=== PATIENT | male | born 1970 | race African-American/Black ===

== ENCOUNTER → 2020-11-02 06:51 | Outpatient (CLI) | payer MEDICARE, SELFPAY ==
[2020-11-02 19:28] LABS: SARS-CoV-2 RNA PCR Negative
== END ==
PROVIDERS: PCP Emergency Medicine; Visit Provider Emergency Medicine
DX: Z20.822 Contact with and (suspected) exposure to COVID-19 (principal); R05 Cough; R09.89 Other specified symptoms and signs involving the circulatory and respiratory systems; R11.0 Nausea
CPT/HCPCS: C9803; U0003; U0005

== ENCOUNTER 2021-07-15 12:29 | Outpatient (CLI) | payer MEDICARE, SELFPAY ==
[2021-07-15 13:01] LABS: Alanine Aminotransferase 35 U/L (4-50); Albumin Level 3.8 g/dL (3.5-5.1); Alkaline Phosphatase 74 U/L (38-126); Anion Gap 3 mmol/L (8-16); Aspartate Amino Transferase 37 U/L (17-59); Bilirubin,Total 0.3 mg/dL (0.2-1.3); Blood Urea Nitrogen 15 mg/dL (9-20); Calcium 8.8 mg/dL (8.4-10.2); Carbon Dioxide 28 mmol/L (22-30); Chloride 102 mmol/L (98-107); Cholesterol 184 mg/dL (0-200); Estimated Glomerular Filt Rate > 60; Glucose 99 mg/dL (65-110); HDL Direct 49 mg/dL; Potassium 4.2 mmol/L (3.4-5.0); Sodium 133 mmol/L (137-145); Triglycerides 310 mg/dL (<150)
[2021-07-15 13:11] LABS: LDL Cholesterol Direct 104 mg/dL
== END 2021-07-15 12:30 | disposition home or self-care (01) ==
PROVIDERS: PCP Emergency Medicine; Visit Provider Emergency Medicine
DX: E78.5 Hyperlipidemia, unspecified (principal)
CPT/HCPCS: 36415; 80053; 80061

== ENCOUNTER 2021-11-06 14:57 | Outpatient (CLI) | payer MEDICARE, SELFPAY ==
--- NOTE | ~2021-11-06 | XR_ITS ---
EXAMINATION: XR finger 5th RT min 2V EXAM DATE: 11/06/2021 15:23 INDICATION: Localized Mass Rt Upper Limb @ Pip Area, Pain/Swelling. TECHNIQUE: Right 5th finger frontal, lateral and oblique projections obtained and reviewed. Comparis on is made to prior examination from 09/28/2016. FINDINGS: There are no acute right 5th finger fractures or dislocations identified. There is no subc utaneous gas. There is soft tissue swelling along the proximal phalanx without underlying osseous ero wil. There are no radiopaque foreign bodies. IMPRESSION: Right 5th finger swelling proximally. Reviewed, dictated and finalized at location G.
== END 2021-11-06 14:58 | disposition home or self-care (01) ==
PROVIDERS: PCP Emergency Medicine; Visit Provider Plastic Surgery
DX: R22.31 Localized swelling, mass and lump, right upper limb (principal)
CPT/HCPCS: 73140

== ENCOUNTER 2022-05-25 07:44 | Emergency (ER) | payer OTHER, SELFPAY ==
[2022-05-25 07:50] VITALS: BP 155/98; PULSE 66; RESP 20; TEMP 36.6; O2SAT 100
[2022-05-25] MEDS: IBUPROFEN 600 MG TABLET PO (08:15)
[2022-05-25] MEDS: CYCLOBENZAPRINE HCL 10 MG TABLET PO (08:15)
--- NOTE | 2022-05-25 08:15 | ED.BACK ---
HPI - Back Pain/Injury General Chief Complaint: Back Pain/Injury Stated Complaint: back pain Time Seen by Provider: 05/25/22 07:47 Source: RN notes reviewed History of Present Illness HPI Narrative: Patient presents emergency department from home for low back pain. Patient states symptoms began yesterday states he was at work and picked up a box turned placed on the shelf states that following that he gone to sit down and then when he got back up he had felt a pull in his back is had pain in the lower back since that time pain in his back is worse with bending and movement of the torso he denies any direct trauma or injury to the back denies falling. He states the pain is only in his back he denies any fevers or chills abdominal pain numbness or weakness of extremities bowel or bladder incontinence or any other symptoms Related Data Home Medications Medication Instructions Recorded Confirmed clotrimazole 1 % topical cream See Rx Instructions .Route .COMPLEX 07/26/19 07/15/21 epinastine 0.05 % eye drops See Rx Instructions .Route .COMPLEX 07/26/19 07/15/21 olopatadine 0.2 % eye drops 1 drop ophthalmic (eye) DAILY 07/26/19 07/15/21 ([place]) Allergies Allergy/AdvReac Type Severity Reaction Status Date / Time No Known Allergies Allergy Verified 05/25/22 08:07 Review of Systems Review of Systems: Gen.: Denies fevers or chills ENT: Denies congestion Respiratory: Denies shortness of breath CV: Denies chest pain or palpitations GI: Denies abdominal pain nausea, emesis or diarrhea denie incontinent Musculoskeletal: See HPI Neuro: Denies numbness, tingling, weakness or focal weakness Skin: Denies rash Except as documented, all other systems reviewed and negative [facility] Past Medical History Medical History HTN (hypertension) Family History Family History Mother Diabetes mellitus Social History Social History Smoking status: Current every day smoker Alcohol intake: current Exam Narrative: APPEARANCE: No acute distress, nontoxic, resting in bed Eyes: EOMI HEENT: Normocephalic, atraumatic, CV: Regular rate and rhythm without murmur RESPIRATORY: No respiratory distress. Clear to auscultation bilaterally. Abdomen: Soft and nontender, no rebound or guarding MUSCULOSKELETAl: Moves all extremities, no clubbing cyanosis or edema Back: No midline lumbar tenderness to palpation or step-off, tender to palpation over bilateral paravertebral muscles L3-5 , pain increased with forward flexion NEURO: Awake and alert. Following commands, speech normal, no focal deficits, muscle strength 5 out of 5 bilateral lower extremities, bilateral patellar reflex 2+ SKIN:: Warm, dry. Normal Color no rash or lesions Course Course Emergency Course: Discussed with patient results of workup and diagnosis. Discussed need for follow-up with primary care, proper use of medication, and reasons to return to the emergency department. Patient understands and agrees to current treatment plan Vital Signs Vital signs: Vital Signs Temperature 97.8 F 05/25/22 07:50 Pulse Rate 66 05/25/22 07:50 Respiratory Rate 20 05/25/22 07:50 Blood Pressure 155/98 H 05/25/22 07:50 Pulse Oximetry 100 05/25/22 07:50 Temperature 97.8 F 05/25/22 07:50 Pulse Rate 66 05/25/22 07:50 Respiratory Rate 20 05/25/22 07:50 Blood Pressure 155/98 H 05/25/22 07:50 Pulse Oximetry 100 05/25/22 07:50 MDM - Back Pain/Injury MDM Narrative Medical decision making narrative: Patient?s pain is positional and localized to back without signs of cord compression or cauda equina. Normal nuerologic exams. No fever noted and no significant risk factors for osteomyelitis or spinal epidural abscess. No symptoms or signs to suggest pain is referred from abdominal or source. There a
== END 2022-05-25 08:31 | disposition home or self-care (01) ==
LOC: ANHED 08:23
PROVIDERS: Emergency Provider Emergency Medicine; PCP Emergency Medicine
DX: M54.50 Low back pain, unspecified (principal); I10 Essential (primary) hypertension
CPT/HCPCS: 99283; A9270

== ENCOUNTER 2023-10-28 09:43 | Outpatient (CLI) | payer OTHER, SELFPAY ==
[2023-10-28 10:10] LABS: Alanine Aminotransferase 54 U/L (6-50); Albumin Level 3.9 g/dL (3.5-5.1); Alkaline Phosphatase 50 U/L (38-126); Anion Gap 4 mmol/L (8-16); Aspartate Amino Transferase 45 U/L (17-59); Bilirubin,Total 0.6 mg/dL (0.2-1.3); Blood Urea Nitrogen 12 mg/dL (9-20); Calcium 8.7 mg/dL (8.4-10.2); Carbon Dioxide 28 mmol/L (22-30); Chloride 107 mmol/L (98-107); Cholesterol 179 mg/dL (0-200); Estimated Glomerular Filt Rate > 60; Glucose 109 mg/dL (65-110); HDL Direct 46 mg/dL; Sodium 139 mmol/L (137-145); Triglycerides 178 mg/dL (<150)
[2023-10-28 10:22] LABS: LDL Cholesterol Direct 97 mg/dL
[2023-10-28 10:41] LABS: Prostate Specific Antigen 0.5 ng/mL (< OR = 4.0)
[2023-10-28 10:48] LABS: Vitamin D 25 Hydroxy 22.8 ng/mL
== END 2023-10-28 09:44 | disposition home or self-care (01) ==
LOC: ANHLAB 09:46
PROVIDERS: PCP Emergency Medicine; Visit Provider Emergency Medicine
DX: E55.9 Vitamin D deficiency, unspecified (principal); I10 Essential (primary) hypertension; K21.9 Gastro-esophageal reflux disease without esophagitis; Z12.5 Encounter for screening for malignant neoplasm of prostate; Z13.220 Encounter for screening for lipoid disorders
CPT/HCPCS: 36415; 80053; 80061; 82306; 84153; 84443; G0103

== ENCOUNTER 2024-08-25 00:36 | Day surgery (SDC) | payer OTHER, SELFPAY ==
--- NOTE | 2024-08-23 10:41 | PC.NURSE ---
Multiple attempts have been made to reach pt regarding his procedure scheduled on 08/25/[address] Mijares with no success. Pt has called the surgery dept. PAT # and was informed to call my number but I have not received any calls from this patient. We have attempted to contact his emergency contact and no voicemail is setup to leave a message. We have called Dr. Diaz office regarding Patient and they have also reached out to patient and have not come into contact with him either. I did leave a message on voicemail once again we are trying to reach him regarding this appt. and that if I do not hear from him today we will need to cancel and reschedule him- this was also sent in an email at the address listed.
[2024-08-25] VITALS (11 sets, daily range): BP systolic 161–203; BP diastolic 108–133; PULSE 66–76; RESP 18–24; TEMP 36.3; O2SAT 100; BMI 26.2
--- NOTE | 2024-08-25 09:18 | P.PNAN_ITS ---
Anes - Initial Pre Proc Eval Procedure: Operation Date: 08/25/24 10:30 Proposed Procedures p Colonoscopy - Pepe Mijares MD Date/Time: 08/25/24 09:18 Surgeon: Pepe Mijares MD Pre Op Diagnosis: fecal abnormalities Patient Data Age: 54 Gender: M Height: 1.78 m Weight: 82.7 kg Last Vital Signs Temp 36.3 C L 08/25/24 08:46 Pulse 66 08/25/24 08:46 Resp 20 08/25/24 08:46 BP 164/108 H 08/25/24 08:46 Pulse Ox 100 08/25/24 08:46 O2 Del Method Room Air 08/25/24 08:46 Allergies Allergy/AdvReac Type Severity Reaction Status Date / Time No Known Allergies Allergy Verified 08/25/24 09:04 Home Medications ?Medication ?Instructions ?Recorded ?Confirmed ?Type epinastine 0.05 % eye drops See Rx Instructions .Route .COMPLEX 07/26/19 08/25/24 History olopatadine 0.2 % eye drops 1 drop ophthalmic (eye) DAILY 07/26/19 08/25/24 History (Pataday) hydrochlorothiazide 25 mg tablet 25 mg PO DAILY #90 tabs 11/04/23 08/25/24 Rx metoprolol succinate 50 mg 50 mg PO DAILY 11/10/23 08/25/24 History tablet,extended release 24 hr pantoprazole 40 mg tablet,delayed 40 mg PO DAILY 11/10/23 08/25/24 History release fluticasone propionate 50 1 spray intranasal BID #48 grams 05/04/24 08/25/24 Rx mcg/actuation nasal spray,suspension (Flonase Allergy Relief) losartan 100 mg tablet See Rx Instructions .Route 06/13/24 08/25/24 Rx .COMPLEX #90 tabs ondansetron HCl 4 mg tablet See Rx Instructions .Route 06/13/24 08/25/24 Rx .COMPLEX #30 tabs Patient hx anesthesia problems: none Family hx anesthesia problems: none Results Review: All pre-operative results and documents have been reviewed as part of the pre- operative evaluation. [facility] Past Medical History Medical History Sinusitis Screening PSA (prostate specific antigen) Nausea Viral warts Seasonal allergic rhinitis Contact dermatitis Fatigue Vitamin D deficiency Umbilical hernia without obstruction and without gangrene HTN (hypertension), benign GERD without esophagitis Generalized abdominal pain Gastroenteritis ETOH abuse Athlete's foot on right Acute non-recurrent maxillary sinusitis Cervical strain Back strain Drainage from wound Cyst of skin Nausea Runny nose Cough HTN (hypertension) Knee pain, bilateral Bronchitis Family History Family History Mother Diabetes mellitus Social History Social History Smoking packs per day: 1 Smoking cigarettes per day: 20.0 Years smoked: 40 Smoking pack-years: 40.00 Smoking status: Current every day smoker Tobacco type: cigarettes Alcohol intake: current Drinks per week: 3 Alcohol use details: Socially Substance use: current Substance use type: marijuana Last use: week ago Do You Feel Safe in your Home?: Yes Lack of Transportation: No Lack of Food: Sometimes True Current Housing: I Have Housing Concerned About Future Housing: No Difficulty Paying Gas/Electric Bills: No Difficulty Paying for Meds: No Currently Unemployed: YES Education: High School Diploma/GED Difficulty w/ Childcare or Family Care: No Living arrangements: alone Spiritual care concerns: No Anes - Eval Final PreProcedure Day of Procedure 08/25/24 09:18 Patient weight: overweight Heart: regular rate and rhythm Lungs: clear to auscultation Airway: Mallampati scale class II Neurological: alert and oriented Last oral intake: >/= 8 hours ASA classification: III Emergent: no Anesthetic plan: proceed Anesthesia type and monitoring: general GIVS and standard monitoring Results Review: All pre-operative results and documents have been reviewed as part of the pre- operative evaluation. Informed Consent: The patient's anesthetic plan and its attendant risks and benefits were discussed with the patient/family/POA. Questions were solicited and answers provided to the satisfaction of the patient/family/POA.
[2024-08-25] MEDS: LACTATED RINGERS 1,000 ML 150 ML IV CONT (09:27)
--- NOTE | 2024-08-25 10:10 | PM.IMHP ---
H&P: HPI History of Present Illness Date/Time: 08/25/24 10:10 Chief Complaint: Positive Cologuard test Narrative: This is the patient's first colonoscopy. he was found to have positive Cologuard test on routine examination. There are no GI symptoms and there is no family history of colorectal cancer. Review of Systems Review of Systems: All systems reviewed & are unremarkable except as noted in HPI and below PMFSH Past Medical History Medical History Sinusitis Screening PSA (prostate specific antigen) Nausea Viral warts Seasonal allergic rhinitis Contact dermatitis Fatigue Vitamin D deficiency Umbilical hernia without obstruction and without gangrene HTN (hypertension), benign GERD without esophagitis Generalized abdominal pain Gastroenteritis ETOH abuse Athlete's foot on right Acute non-recurrent maxillary sinusitis Cervical strain Back strain Drainage from wound Cyst of skin Nausea Runny nose Cough HTN (hypertension) Knee pain, bilateral Bronchitis Family History Family History Mother Diabetes mellitus Social History Social History Smoking packs per day: 1 Smoking cigarettes per day: 20.0 Years smoked: 40 Smoking pack-years: 40.00 Smoking status: Current every day smoker Tobacco type: cigarettes Alcohol intake: current Drinks per week: 3 Alcohol use details: Socially Substance use: current Substance use type: marijuana Last use: week ago Do You Feel Safe in your Home?: Yes Lack of Transportation: No Lack of Food: Sometimes True Current Housing: I Have Housing Concerned About Future Housing: No Difficulty Paying Gas/Electric Bills: No Difficulty Paying for Meds: No Currently Unemployed: YES Education: High School Diploma/GED Difficulty w/ Childcare or Family Care: No Living arrangements: alone Spiritual care concerns: No Meds Home Medications and Allergies Home Medications ?Medication ?Instructions ?Recorded ?Confirmed ?Type epinastine 0.05 % eye drops See Rx Instructions .Route .COMPLEX 07/26/19 08/25/24 History olopatadine 0.2 % eye drops 1 drop ophthalmic (eye) DAILY 07/26/19 08/25/24 History (Pataday) hydrochlorothiazide 25 mg tablet 25 mg PO DAILY #90 tabs 11/04/23 08/25/24 Rx metoprolol succinate 50 mg 50 mg PO DAILY 11/10/23 08/25/24 History tablet,extended release 24 hr pantoprazole 40 mg tablet,delayed 40 mg PO DAILY 11/10/23 08/25/24 History release fluticasone propionate 50 1 spray intranasal BID #48 grams 05/04/24 08/25/24 Rx mcg/actuation nasal spray,suspension (Flonase Allergy Relief) losartan 100 mg tablet See Rx Instructions .Route 06/13/24 08/25/24 Rx .COMPLEX #90 tabs ondansetron HCl 4 mg tablet See Rx Instructions .Route 06/13/24 08/25/24 Rx .COMPLEX #30 tabs Allergies Allergy/AdvReac Type Severity Reaction Status Date / Time No Known Allergies Allergy Verified 08/25/24 09:04 Vital Signs Vital Signs - 24 hr 08/25/24 08:46 Temperature 97.4 F L Pulse Rate 66 Respiratory Rate 20 Blood Pressure 164/108 H Pulse Oximetry 100 Oxygen Delivery Room Air Exam Const: General: cooperative and healthy appearing Resp: Effort & Inspection: normal respiratory effort and able to speak in complete sentences Auscultation: clear to auscultation bilaterally Cardio: Rate: regular rate Rhythm: regular rhythm GI: Inspection: normal to inspection GI Palp: No No hepatosplenomegaly present Auscultation: normal bowel sounds Rectal Exam: deferred Skin: General skin exam: normal color Psych: Appearance: grossly normal Mental Status: mental status grossly normal Assessment and Plan Assessment and plan (1) Colon cancer screening: Code(s): Z12.11 - Encounter for screening for malignant neoplasm of colon Status: Acute Assessment and Plan: The patient is deemed a good candidate for the procedure. Consent signed. Will proceed.
[2024-08-25] MEDS: LABETALOL HCL INJ 100 MG/20 ML VIAL IV PUSH ×2 (11:10→11:48)
[2024-08-25] MEDS: EPINEPHrine INJ 1 MG/10 ML SYRINGE XX (12:01)
--- NOTE | 2024-08-25 12:12 | SUR.PHASEII ---
Patient blood pressure reading 161/121. MD Mc said patient is okay to discharge and take his blood pressure medication at home. Patient verbalized understanding.
--- NOTE | 2024-08-25 15:13 | SUR.PHASEII ---
Patient brought home by driving service. This RN attempted to call patient. Patient did not answer. Then attempted to call patients friend, Julia, as listed by patient with no response.
== END 2024-08-25 14:00 | disposition home or self-care (01) ==
PROVIDERS: PCP Emergency Medicine; Visit Provider Internal Medicine Gastroenterology
PROC: 0DJD8ZZ Inspection of Lower Intestinal Tract, Via Natural or Artificial Opening Endoscopic (ICD-10-PCS; CPT 45378; principal; 2024-08-25 10:30)
DX: D12.5 Benign neoplasm of sigmoid colon (principal); E55.9 Vitamin D deficiency, unspecified; I10 Essential (primary) hypertension; K21.9 Gastro-esophageal reflux disease without esophagitis; F17.210 Nicotine dependence, cigarettes, uncomplicated; F12.90 Cannabis use, unspecified, uncomplicated; Z87.19 Personal history of other diseases of the digestive system
CPT/HCPCS: 45385; 88305; J0171; J2003; J2704; J7120

== ENCOUNTER 2024-11-14 09:59 | Outpatient (CLI) | payer MEDICARE, SELFPAY ==
[2024-11-14 10:47] LABS: Alanine Aminotransferase 50 U/L (6-50); Albumin Level 4.2 g/dL (3.5-5.1); Alkaline Phosphatase 68 U/L (38-126); Anion Gap 7 mmol/L (4-12); Aspartate Amino Transferase 36 U/L (17-59); Bilirubin,Total 0.6 mg/dL (0.2-1.3); Blood Urea Nitrogen 14 mg/dL (9-20); Calcium 8.8 mg/dL (8.4-10.2); Carbon Dioxide 31 mmol/L (22-30); Chloride 101 mmol/L (98-107); Cholesterol 208 mg/dL (0-200); Estimated Glomerular Filt Rate > 60; Glucose 111 mg/dL (65-110); HDL Direct 46 mg/dL; Potassium 3.7 mmol/L (3.4-5.0); Sodium 139 mmol/L (137-145); Triglycerides 233 mg/dL (<150)
[2024-11-14 10:57] LABS: LDL Cholesterol Direct 107 mg/dL
--- OUTSIDE RECORDS SUMMARY | 2024-11-14 11:09 | XMS_ITS | Clinical Summary ---
Author Organization [facility] Address [address] [place] [address] Care Team Providers Care Rate Setter Name Role Phone John Diaz MD Primary Care Provide r Allergies No known active allergies Medications loratadine (CLARITIN) 10 mg tablet Active dextromethorphan-g uaiFENesin (TUSSIN-DM) liquid 10-100 mg/5 mL Take 5 mL by mouth 2 (two) times a day. 118 mL 8 Active losartan (COZAAR) 50 mg tablet Take 50 mg by mouth daily Active fluticasone propionate (FLONASE) 50 mcg/actuation nasal sprayIndications:A llergic Rhinitis Administer 1 spray into each nostril 2 (two) times a day [address] (PROTONIX) 40 mg EC tablet 0 Active benzonatate (TESSALON) 100 mg capsuleIndications :Cough Take 1 capsule (100 mg total) by mouth 3 (three) times a day as needed for cough 15 capsule 3 Active ondansetron ODT (ZOFRAN-ODT) 4 mg disintegrating tablet Dissolve 1 tablet oral every 4 hours as needed for nausea or vomiting. 15 tablet 4 Active Active Problems Problem Noted Date Diagnosed Date Glaucoma suspect of both eyes 04/13/2024 Overview (04/13/2024): + Based on large CDR, OS > OD + Family history: mother with glaucoma + AA + Gonio open with patchy PAS + T-max Assessment & Plan (04/13/2024 5:37 PM CDT): Obtained OCT RNFL OU today, reassuring without thinning OU. Given reassuring OCT and normal IOP, will follow as below. RTC 1 year for baseline HVF 24-2, OCT RNFL, pachymetry, DFEx OU. Medical History Medical History Date Comments Personal history of other di seases of the circulatory system History of hypertension - (A dded by COREY Conv) Hypertension Family History Medical History Relation Name Comments Diabetes Mother Family history of diabetes mellitus - (Added by COREY Conv) Relation Name Status Comments Mother Social History Tobacco Use Types Packs/Day Years Used Date Smoking Tobacco: Every Day Cigarettes Smokeless Tobacco: Never Alcohol Use Standard Drinks/Week Comments Yes 0 (1 standard drink = 0.6 oz pur e alcohol) Occassionally Personal Safety Answer Date Recorded Have you ever been in or are you currently in a harmful physical or emotional relationship or is someone making you feel afraid or unsafe? 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 Gender Identity Not on file Sexual Orientation Not on file Obstetrics History Last Filed Vital Signs Vital Sign Reading Time Taken Comments Blood Pressure 139/94 02/10/2024 9:26 AM CDT Pulse 75 02/10/2024 9:26 AM CDT Temperature 36.8 C (98.2 F) 02/10/2024 9:26 AM CDT Respiratory Rate 17 02/10/2024 9:26 AM CDT Oxygen Saturation 100% 02/10/2024 9:26 AM CDT Inhaled Oxygen Concentration - - Weight 81.6 kg (180 lb) 02/10/2024 9:26 AM CDT Height 175.3 cm (5' 9 ) 02/10/2024 9:26 AM CDT Body Mass Index 26.58 02/10/2024 9:26 AM CDT Plan of Treatment Health Maintenance Due Date Last Done Comments Colon Cancer Screening-Colonoscopy 1969 Depression Screening 1969 Hepatitis C Screening 1969 Prostate Cancer Screening-PSA 1969 Regular Well Visit/Exam 18-64 1987 Pneumococcal vaccine <65 (2 of 2 - PCV) 07/26/2017 07/26/2016 Zoster Vaccine (1 of 2) 2019 DTaP/Tdap/Td Vaccine (2 - Td or Tdap) 04/01/2020 04/01/2010, 04/24/2005 Influenza Vaccine (#1) 2024 8, 07/26/2016, 05/12/2014, Additional history exists Hepatitis B Screening Completed 04/24/2005 Insurance [employer] CHOICE MEDICARE PPO [address] [facility] [place] [id number] [place] [facility] [id number] Care Teams Rate Setter Relationship Specialty Start Date End Date John Diaz MD [address] [place] [address] PCP - General 08/02/17
--- OUTSIDE RECORDS SUMMARY | 2024-11-14 11:09 | XMS_ITS | Continuity of Care Document ---
Author Name [facility] Organization [facility] Care Team Providers Care Publicist Name Role Phone [facility] Unavailable Unavailable Problems Combined list of problems from Department of Defense and Veterans Affairs facilities. It does not include entries that were removed or entered in error. Problem Status Onset Date Problem Type Date of Resolution Comments Source Alcohol dependence Active Condition [facility] Homeless single person Active Condition [facility]
--- OUTSIDE RECORDS SUMMARY | 2024-11-14 11:09 | XMS_ITS | Referral Summary ---
Author Organization [facility] Address [address] [place] [address] Care Team Providers Care Fabrication Department Supervisor Name Role Phone John Diaz MD Primary [...] HVF 24-2, OCT RNFL, pachymetry, DFEx OU. 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UAL [place] [id number] MEDICAID [place] [employer] [facility] DUAL COMPLETE [id number] Care Teams Fabrication Department Supervisor Relationship Specialty Start Date End Date John Diaz MD [address] [place] [place] [address] PCP - General 08/02/17
--- OUTSIDE RECORDS SUMMARY | 2024-11-14 11:09 | XMS_ITS | Clinical Summary ---
Author Organization [facility] Address [address] [place] [address] Care Team Providers Care Suction Worker Name Role Phone Geovani Noguera MD Primary Care Provider [phone] Source Comments [facility],non-owned Affiliates and Associated Physician Practices is amultiple site organization consisting of ambulatory clinics and hospital sitesin [place], [place], [place] and [place]. This disclosure is being madepursuant to the Care Everywhere program and may not contain all information available regarding this patient. Last updated 18.[facility] Allergies No known active allergies Medications * Be aware that medications may not be up to date on this document. Alwaysverify current medications with the patient. Medication Sig Dispensed Refills Start Date End Date Status acetaminophen (Tylenol) 500 MG tablet Take 1 (one) tablet by mouth every 4 hours as needed for Fever or Pain Maximum allowable Acetaminophen amount = 4 Grams (4000 mg) / 24 hours. 30 tablet 10/18/2024 Active ibuprofen (Motrin) 600 MG tablet Take 1 (one) tablet by mouth every 6 hours as needed for Pain 30 tablet 10/18/2024 Active Encounters Date Type Department Care Team Description 10/18/2024 12:42 PM [employer] - 10/18/2024 3:07 PM [facility] Emergency [facility] [address] [place] [address] Zi Chowdhury MD Flu (Primary Dx); Chills; Cough, unspecified type Discharge Disposition: Home or Self Care 10/18/2024 Travel from Last 3 Months Immunizations Name Administration Dates Next Due HEP A VACCINE, ADULT 09/12/2016 INFLUENZA VACCINE, QUADR. (F LUZONE; FLULAVAL; FLUARIX; AFLURIA QUADRIVALENT; 6MO+), 0.5 ML (IIV4) 08/24/2017 Social History Tobacco Use Types Packs/Day Years Used Date Smoking Tobacco: Every Day Cigarettes Smokeless Tobacco: Never Tobacco Cessation:Ready to Q uit: Not Asked; Counseling Given: Not Answered Alcohol Use Standard Drinks/Week Comments Yes 0 (1 standard drink = 0.6 oz pur e alcohol) occ Sex and Gender Information Value Date Recorded Sex Assigned at Not on file Gender Identity Not on file Sexual Orientation Not on file Last Filed Vital Signs Vital Sign Reading Time Taken Comments Blood Pressure 127/83 10/18/2024 10:41 AM [employer] Pulse 106 10/18/2024 10:41 AM [employer] Temperature 37.1 C (98.7 F) 10/18/2024 10:41 AM [employer] Respiratory Rate 16 10/18/2024 10:41 AM [employer] Oxygen Saturation 98% 10/18/2024 10:41 AM [employer] Inhaled Oxygen Concentration - - Weight 81.6 kg (180 lb) 10/18/2024 7:50 AM [employer] Height 177.8 cm (5' 10 ) 10/18/2024 7:50 AM [employer] Body Mass Index 25.83 10/18/2024 7:50 AM [employer] Plan of Treatment Health Maintenance Due Date Last Done Comments COLOGUARD (AGES 45-75) - COLON CA SCREENING 1969 COLON MONITORING 1969 COLONOSCOPY - COLON CA SCREENING 1969 CT COLONOGRAPHY - COLON CA SCREENING 1969 Colorectal Cancer Screening 1969 FIT - COLON CA SCREENING 1969 FLEX SIG - COLON CA SCREENING 1969 LIPID TESTING 1969 DTAP/TDAP/TD VACCINES (1 - Tdap) 02/03/1988 HEPATITIS B VACCINE (1 of 3 - 19+ 3-dose series) 02/03/1988 PNEUMOCOCCAL VACCINE 50+ (1 of 2 - PCV) 02/03/1988 ZOSTER VACCINE (1 of 2) 2019 DEPRESSION SCREENING 08/17/2024 MEDICARE AWV CALENDAR YEAR 2024 HEPATITIS C SCREENING Completed 09/13/2017 HIV SCREENING Completed 09/13/2017 COVID-19 VACCINE Completed 07/06/2024, , 12/21/2020 INFLUENZA VACCINE Completed 07/06/2024, , 07/26/2016, Additional history exists HIB VACCINE Aged Out No longer eligi ble based on patient's age to complete this topic HPV VACCINE Aged Out No longer eligi ble based on patient's age to complete this topic MENINGOCOCCAL (Group B) VACCINE SHARED DECISION-MAKING Aged Out No longer eligible based on patient's age to complete this topic MENINGOCOCCAL GROUPS A/C/Y/W VACCINE Aged Out No longer eligible based on patient's age to complete this topic Procedures Procedure Name Priority Date/Time Associated Diagnosis Comments LIPASE BLOOD STAT 10/18/2024 9:11 AM [employer] COMPREHENSIVE METABOLIC PANEL STAT 10/18/2024 9:11 AM [employer] CBC W AUTO DIFFERENTIAL STAT 10/18/2024 9:11 AM [employer] SARS-COV-2 (COVID-19) FLU A/B RSV PCR RAPID STAT 10/18/2024 9:11 AM [employer] HEPATITIS C AB SCREEN RFLX NAAT QUANT Routine 09/13/2017 11:38 PM [employer] HIV-1 HIV-2 ANTIGEN/ANTIBODY Routine 09/13/2017 11:38 PM [employer] from Last 3 Months or Most Recently Relevant to Health Maintenance Results * (ABNORMAL) SARS-COV-2 (COVID-19) FLU A/B RSV PCR RAPID (10/18/2024 9:11 AM [employer]) COVID-19 PCR Not detected Not detected 10/19/19 10:08 AM [facility] Influenza A PCR Detected(A) Not detected 10/18/2024 10:08 AM [facility] Influenza B PCR Not detected Not detected 10/18/2024 10:08 AM [facility] RSV PCR Not detected Not detected 10/18/2024 10:08 AM [facility] Microbiology SPECIMEN FROM NASOPHARYNGEAL STRUCTURE / Unknown Collection / Unknown 10/18/2024 9:11 AM [employer] 10/18/2024 9:20 AM [facility] - 10/18/2024 10:08 AM [employer] Droplet Precautions Required. This nucleic acid amplification assay has been authorized by the Food and Drug administration (FDA) under an Emergency Use Authorization (EUA). This test is only authorized for the duration of time the declaration that circumstances exist justifying the authorization of emergency use of in vitro diagnostic tests for detection of SARS-CoV-2 virus and/or diagnosis of COVID-19 infection under section 564(b)(1) of the Act, 21 U.S.C 360bbb-3 (b)(1), unless the authorization is terminated or revoked sooner. Fact Sheets for this EUA assay are available upon request. Rachel Messer MD LAB - MICROBIOLOGY O RDERABLES [facility] [address] [place] [address], [facility] [phone] * (ABNORMAL) CBC W AUTO DIFFERENTIAL (10/18/2024 9:11 AM [employer]) Pathologist [facility] WBC 8.0 4.0 - 10.7 x10E9/L 10/18/2024 9:31 AM [facility] RBC Count 5.61 4.30 - 5.80 x10E12/L 10/18/2024 9:31 AM [facility] Hemoglobin 16.0 13.3 - 17.5 g/dL 10/18/2024 9:31 AM [facility] Hematocrit 45.8 38.7 - 51.1 % 10/18/2024 9:31 AM [facility] MCV 81.6 80.0 - 98.0 fL 10/18/2024 9:31 AM [facility] MCH 28.5 26.7 - 33.6 pg 10/18/2024 9:31 AM [facility] MCHC 34.9 31.7 - 36.3 g/dL 10/18/2024 9:31 AM [facility] RDW-CV 13.5 11.3 - 14.8 % 10/18/2024 9:31 AM [facility] Platelet Count 207 150 - 420 x10E9/L 10/18/2024 9:31 AM [facility] MPV 11.1 7.8 - 11.4 fL 10/18/2024 9:31 AM [facility] Neutrophil % 80.7(H) 41.0 - 74.0 % 10/18/2024 9:31 AM [facility] Lymphocyte % 7.9(L) 17.0 - 47.0 % 10/18/2024 9:31 AM [facility] Monocyte % 8.3 3.0 - 11.0 % 10/18/2024 9:31 AM [facility] Eosinophil % 2.1 0.0 - 7.0 % 10/18/2024 9:31 AM [facility] Basophil % 0.6 0.0 - 1.6 % 10/18/2024 9:31 AM [facility] Immature Granulocytes % 0.4 0.0 - 1.0 % 10/18/2024 9:31 AM [facility] Neutrophil Absolute 6.41 1.60 - 7.50 x10E9/L 10/18/2024 9:31 AM [facility] Lymphocyte Absolute 0.63(L) 1.00 - 4.40 x10E9/L 10/18/2024 9:31 AM [facility] Monocyte Absolute 0.66 0.15 - 1.00 x10E9/L 10/18/2024 9:31 AM [facility] Eosinophil Absolute 0.17 0.00 - 0.60 x10E9/L 10/18/2024 9:31 AM [facility] Basophil Absolute 0.05 0.00 - 0.13 x10E9/L 10/18/2024 9:31 AM [facility] Blood BLOOD SPECIMEN / Unknown Venipuncture / Unknown 10/18/2024 9:11 AM [facility] 10/18/2024 9:21 AM [facility] Rachel Messer MD LAB - HEMATOLOGY ORD ERABLES [facility] [address] [place] [address], [facility] [phone] * (ABNORMAL) COMPREHENSIVE METABOLIC PANEL (10/18/2024 9:11 AM [facility]) BUN 15 7 - 26 mg/dL 10/18/2024 9:46 AM [facility] Creatinine 1.45(H) 0.71 - 1.16 mg/dL 10/18/2024 9:46 AM [facility] Sodium 132(L) 136 - 145 mmol/L 10/18/2024 9:46 AM [facility] Potassium 2.9(L) 3.5 - 4.5 mmol/L 10/18/2024 9:46 AM [facility] Chloride 97(L) 98 - 107 mmol/L 10/18/2024 9:46 AM [facility] CO2 26 22 - 29 mmol/L 10/18/2024 9:46 AM [facility] Glucose 157(H) 70 - 99 mg/dL 10/18/2024 9:46 AM [facility] Calcium 8.4 8.4 - 10.2 mg/dL 10/18/2024 9:46 AM [facility] Protein Total 7.0 6.0 - 8.3 g/dL 10/18/2024 9:46 AM [facility] Albumin 4.0 3.4 - 5.0 g/dL 10/18/2024 9:46 AM [facility] Bilirubin Total 0.4 0.2 - 1.2 mg/dL 10/18/2024 9:46 AM [facility] Alkaline Phosphatase 54 40 - 150 U/L 10/18/2024 9:46 AM [facility] ALT 62(H) 5 - 55 U/L 10/18/2024 9:46 AM [facility] AST 158(H) 5 - 34 U/L 10/18/2024 9:46 AM [facility] Anion Gap 9 6 - 16 10/18/2024 9:46 AM [facility] BUN/Creatinine Ratio 10 7 - 23 10/18/2024 9:46 AM [facility] Osmolality Calculated 278 275 - 295 mOsm/kg 10/18/2024 9:46 AM [facility] Albumin/Globulin Ratio 1.3 1.1 - 2.3 10/18/2024 9:46 AM [facility] eGFR by CKD-EPI 57(L) >=90 mL/min/1.7 3 m2 10/18/2024 9:46 AM [facility] Blood BLOOD SPECIMEN / Unknown Venipuncture / Unknown 10/18/2024 9:11 AM [employer] 10/18/2024 9:21 AM [employer] Rachel Messer MD LAB - CHEMISTRY KATHE DARBY Performing Organization Address [facility]/ZIP Co de Phone Number [facility] [address] [place] [address], [facility] [phone] * LIPASE BLOOD (10/18/2024 9:11 AM [employer]) Lipase 33 8 - 78 U/L 10/18/2024 9:46 AM [facility] Blood BLOOD SPECIMEN / Unknown Venipuncture / Unknown 10/18/2024 9:11 AM [employer] 10/18/2024 9:21 AM [employer] Narrative [facility] - 10/18/2024 9:46 AM [employer] Lipase results from the Rose Alinity analyzer may not be comparable with other methodologies. Rachel Messer MD LAB - CHEMISTRY KATHE DARBY Performing Organization Address [facility] Co de Phone Number [address] [address], [place] [phone] * HIV-1 HIV-2 ANTIGEN/ANTIBODY (09/13/2017 11:38 PM [employer]) HIV Antigen/Antibod y 1 & 2 Non-reacti ve Non-react gaby [facility] Comment: Neither HIV-1 p24 Antigen nor HIV-1/HIV-2 Antibodies are detected. Blood specimen (specimen) BLOOD SPECIMEN / Unknown 09/13/2017 11:38 PM [employer] 09/13/2017 11:38 PM [employer] Wesley Rodriges MD LAB - HEMATOLOGY [facility] RICH Performing Organization Address City/[facility]/ZIP Co de Phone Number [facility] [address] [place] [address] [phone] * HEPATITIS C AB SCREEN RFLX PCR QUANT (09/13/2017 11:38 PM [employer]) Hepatitis C Antibody Non-react gaby Non-reac tive [facility] Comment: Hepatitis C Antibody screen indicates no serologic evidence of past or current infection with Hepatitis C Virus. Patients with unexplained liver disease who are immunocompromised or suspected of having acute Hepatitis C infection may benefit from Nucleic Acid Test (YOON) for Hepatitis C Viral RNA to confirm Hepatitis C status. BLOOD SPECIMEN / Unknown 09/13/2017 11:38 PM [employer] 09/13/2017 11:38 PM [employer] Wesley Rodriges MD LAB - CHEMISTRY KATHE DARBY [facility] [address] [place] [address], [facility] [phone] from Last 3 Months or Most Recently Relevant to Health Maintenance Care Teams Suction Worker Relationship Specialty Start Date End Date Geovani Noguera MD PCP - General Internal Medicine 09/12/16
--- OUTSIDE RECORDS SUMMARY | 2024-11-14 11:09 | XMS_ITS | Continuity of Care Document ---
Author Organization [facility] Address [address] [place] [address] Phone Care Team Providers Care Building Illuminating Engineer Name Role Phone Management, Case Unavailable Unavailable [...] - Active Nasacort AQ 55 mcg Nasal [place] Aerosol inhale 2 spray by Intranasal route [...] Date Alcohol and/or drug services; [facility] Encounter Alcohol and/or drug services; [facility] Alcohol and/or drug services; [facility] Alcohol and/or drug services[facility] Alcohol and/or drug services[facility] Alcohol and/or drug services; [facility] Alcohol and/or drug services; case [facility] Alcohol and/or drug services; case [facility] MENTAL HEALTH SERVICE PLAN DEVELOPMENT B Y NON-PHYSICIAN MENTAL HEALTH SERVICE PLAN DEVELOPMENT B Y NON-PHYSICIAN Alcohol and/or drug services; [facility] MENTAL HEALTH SERVICE PLAN DEVELOPMENT B Y NON-PHYSICIAN Alcohol and/or drug services; case manag [facility] Alcohol and/or drug services; case [facility] MENTAL HEALTH SERVICE PLAN DEVELOPMENT B Y NON-PHYSICIAN Alcohol and/or drug services; case [facility] MENTAL HEALTH SERVICE PLAN DEVELOPMENT B Y NON-PHYSICIAN MENTAL HEALTH SERVICE PLAN DEVELOPMENT B Y NON-PHYSICIAN MENTAL HEALTH SERVICE PLAN DEVELOPMENT B Y NON-PHYSICIAN Alcohol and/or drug services; case manag [facility] Alcohol and/or drug services; case [facility] Alcohol and/or drug services; case [facility] Debridement, Full Mouth, For Comprehensi ve Evaluation/Diagnosis [...] 25 MIN COLLECTION OF VENOUS BLOOD BY VENJULIANNE RE OFFICE OUTPT EST 25 MIN HEP [...] 5 MIN SKIN TEST; TUBERCULOSIS, INTRADERMAL Jun OFFICE O/P EST 5 MIN BLOOD COUNT; COMPLETE (CBC), AUTOMATED (HGB, HCT, RBC, WBC AND PLATELET COUNT) HEPATITIS B CORE ANTIBODY (HBCAB); TOTAL OFFICE/OUTPATIENT VISIT, EST INFLUENZA VACCINE, AGE 3YRS+ URNLS DIP STICK/TABLET RGNT AUTO W/O TRISHA OFFICE/OUTPATIENT VISIT, EST OFFICE OUTPT EST 10 MIN OFFICE CONSULT, 15 MIN, 3 KE Y COMPS: PROB FOCUS HX; PROB FOCUS EXAM; STRTFWD OFFICE/OUTPATIENT VISIT, EST OFFICE/OUTPATIENT VISIT, EST [place] [employer] Periapical first film COLLECTION OF VENOUS BLOOD BY VENIPUNCTU RE [...] VST EST PT LOW TO MOD SEVERITY LIPID PANEL COLLECTION OF VENOUS BLOOD BY VENIPUNCTU RE GLUCOSE BLOOD TEST BASIC METABOLIC PANEL CALCIUM TOTAL OFFICE/OUTPATIENT VISIT, EST HEP A/HEP B VACC, ADULT IM HOME VST NEW PT HI SEVERITY OFFICE/OUTPATIENT VISIT, EST COLLECTION OF VENOUS BLOOD BY VENIPUNCTU RE CALCIFEDIOL (25-OH VITAMIN D-3) 008 OFFICE CONSULT, 15 MIN, 3 KE Y COMPS: PROB FOCUS HX; PROB FOCUS EXAM; [facility] Limit oral eval problem focused 008 Periapical first film OFFICE OUTPT EST 10 MIN OFFICE/OUTPATIENT VISIT, EST OFFICE CONSULT, 15 MIN, 3 KE Y COMPS: PROB FOCUS HX; PROB FOCUS EXAM; STRTFWD [place] OFFICE OUTPT EST 10 MIN OFFICE OUTPT EST 10 MIN Topical fluor w/o prophy adult 07 Dental prophylaxis adult Comprehensve oral evaluation OFFICE CONSULT, 15 MIN, 3 KE Y COMPS: PROB FOCUS HX; PROB FOCUS EXAM; [facility] CALCIFEDIOL (25-OH VITAMIN D-3) 007 SYPHILIS TEST; QUALITATIVE (EG, VDRL, RP R, ART) OFFICE/OUTPATIENT VISIT, EST COLLECTION OF VENOUS BLOOD BY VENIPUNCTU RE THYROID STIMULATING HORMONE (TSH) URNLS DIP STICK/TABLET RGNT AUTO W/O TRISHA COMPRE METAB PANEL BLOOD COUNT; COMPLETE (CBC), [...] WBC AND PLATELET COUNT) OFFICE/OUTPATIENT VISIT, EST COMPRE METAB PANEL AMYLASE CALCIFEDIOL (25-OH VITAMIN D-3) 006 THYROID STIMULATING HORMONE (TSH) ANTIBODY; HELICOBACTER PYLORI 6 Debridement, Full Mouth Limit oral eval problem focused 006 Oral hygiene instruction Dental bitewings two films OFFICE CONSULT, 15 MIN, 3 KE Y COMPS: PROB FOCUS HX; PROB FOCUS EXAM; STRTFWD HOME VST EST PT LOW TO MOD SEVERITY OFFICE OUTPT NEW 30 MIN Advance Directives Directive Yes / No Effective Date File Name No Information Encounters Encounter Description Practice Location Reason(s) For Visit Diagnoses Date Provider Providers Copied on Encounter [facility], [address], [place], [place], [address] , tel: [phone] [facility] No Information 3 Management Case. [address], [place], [place], [address], . tel:[phone] Consulting Provider: Case Management, [address], [place], [place], [address] [place] [address]. tel:[phone] [facility], [address], [place], [place], [address] , tel: [phone] [facility] No Information 3 Management Case. [address], [place], [place], [address], . tel:[phone] Consulting Provider: Case Management, [address], [place], [address] [place] [address]. tel:[phone] [facility], [address], [place], [place], [address] , tel: [phone] [facility] No Information 3 Management Case. [address], [place], [place], [address], . tel:[phone] [facility], [address], [place], [place], [address] , tel: [phone] [facility] No Information 3 Management Case. [address], [place], [place], [address], [place]. tel:[phone] [facility], [address], [place], [place], [address] , [place] tel: [phone] [facility] No Information 3 Management Case. [address], [place], [place], [address], . tel:[phone] [facility], [address], [place], [place], [address] , tel: [phone] [facility] No Information 3 Management Case. [address], [place], [place], [address], [place]. tel:[phone] [facility], [address], [place], [place], [address] , [place] tel:[phone] [facility] No Information 3 Management Case. [address], [place], [address], [place]. tel:[phone] [facility], [address], [place], [place], [address] , [place] tel:[phone] [facility] No Information 3 Management Case. [address], [place], [place], [address], [place]. tel:[phone] [facility], [address], [place], [place], [address] , [place] tel:[phone] [facility] No Information 3 Management Case. [address], [place], [place], [address], [place]. tel:[phone] [facility], [address], [place], [place], [address] , [place] tel:[phone] [facility] No Information 3 Management Case. [address], [place], [place], [address], [place]. tel:[phone] [facility], [address], [place], [place], [address] , [place] tel:[phone] [facility] No Information 3 Management Case. [address], [place], [place], [address], [place]. tel:[phone] [facility], [address], [place], [place], [address] , [place] tel:[phone] [facility] No Information 3 Management Case. [address], [place], [address], [place]. tel:[phone] Consulting Provider: Case Management, [address], [place], [address]. tel:[phone] [facility], [address], [place], [place], [address] , [place] tel: [phone] [facility] No Information 0 3 Management Case. [address], [place], [address], [place]. tel:[phone] Consulting Provider: Case Management, [address], [place], [address]. tel:[phone] [facility], [address], [place], [place], [address] , [place] tel: [phone] [facility] No Information 0 3 Management Case. [address], [place], [address], [place]. tel:[phone] [facility], [address], [place], [place], [address] , tel: [phone] [facility] No Information 3 Management Case. [address], [place], [place], [address], [place]. tel:[phone] [facility], [address], [place], [place], [address] , [place] tel: [phone] [facility] No Information 2 Management Case. [address], [place], [place], [address], [place]. tel:[phone] Consulting Provider: Case Management, [address], [place], [address]. tel:[phone] [facility], [address], [place], [place], [address] , [place] tel:[phone] [facility] No Information 6 2 Management Case. [address], [place], [place], [address], [place]. tel:[phone] Consulting Provider: Case Management, [address], [place], [address]. tel:[phone] [facility], [address], [place], [place], [address] , tel: [phone] [facility] No Information 0 3-202 2 Management Case. [address], [place], [place], [address], [place]. tel:[phone] Consulting Provider: Case Management, [address], [place], [address]. tel:[phone] [facility], [address], [place], [place], [address] , tel: [phone] [facility] No Information 2 Management Case. [address], [place], [place], [address], [place]. tel:[phone] Consulting Provider: Case Management, [address], [place], [address]. tel:[phone] [facility], [address], [place], [place], [address] , tel: [phone] [facility] No Information 2 Management Case. [address], [place], [address], [place]. tel:[phone] Consulting Provider: Case Management, [address], [place], [address]. tel:[phone] [facility], [address], [place], [place], [address] , [place] tel: [phone] [facility] No Information 2 Management Case. [address], [place], [address], [place]. tel:[phone] Consulting Provider: Case Management, [address], [place], [address]. tel:[phone] [facility], [address], [place], [place], [address] , [place] tel: [phone] [facility] No Information 2 Management Case. [address], [place], [address], [place]. tel:[phone] Consulting Provider: Case Management, [address], [place], [address]. [phone] [facility], [address], [place], [place], [address] , [place] tel: [phone] [facility] No Information 0 2 Management Case. [address], [place], [place], [address], [place]. tel:[phone] Consulting Provider: Case Management, [address], [place], [address]. tel:[phone] [facility], [address], [place], [place], [address] , [place] tel: [phone] [facility] Chronic periodontiti s, generalized, slightEncoun ter for dental exam and cleaning w abnormal findings 2 Piper Conchita. [address], [place], [place], [address]. tel:[phone] [facility], [address], [place], [place], [address] , [place] tel: [phone] [facility] Encounter for dental exam and cleaning w abnormal findings 1 No Information [facility], [address], [place], [place], [address] , [place] tel: [phone] [facility] Encounter for dental exam and cleaning w abnormal findings 1 No Information [facility], [address], [place], [place], [address] , [place] tel: [phone] [facility] No Information 1 Management Case. [address], [place], [place], [address], . [phone] Consulting Provider: Case Management, [address], [place], [address]. tel:[phone] [facility], [address], [place], [place], [address] , [place] tel: [phone] [facility] [place] Encounter for dental exam and cleaning w abnormal findings 0 0 No Information [facility], [address], [place], [place], [address] , [place] tel: [phone] [facility] No Information 0 201 9 Management Case. [address], [place], [place], [address], [place]. tel:[phone] Referring Provider: Case Management, [address], [place], [address]. tel:[phone] [facility], [address], [place], [place], [address] , [place] tel: [phone] [facility] No Information 9 Management Case. [address], [place], [place], [address], [place]. tel:[phone] Referring Provider: Case Management, [address], [place], [address]. tel:[phone] [facility], [address], [place], [place], [address] , [place] tel: [phone] [facility] No Information 9 Management Case. [address], [place], [address], [place]. [phone] Referring Provider: Case Management, [address], [place], [address]. tel:[phone] [facility], [address], [place], [place], [address] , [place] tel: [phone] [facility] No Information 9 Management Case. [address], [place], [place], [address], [place]. tel:[phone] Referring Provider: Case Management, [address], [place], [address]. tel:[phone] [facility], [address], [place], [place], [address] , [place] tel: [phone] [facility] No Information 9 Management Case. [address], [place], [place], [address], [place]. tel:[phone] Referring Provider: Case Management, [address], [place], [address]. tel:[phone] [facility], [address], [place], [place], [address] , tel: [phone] [facility] No Information 9 Management Case. [address], [place], [place], [address], [place]. tel:[phone] Referring Provider: Case Management, [address], [place], [address]. tel:[phone] [facility], [address], [place], [place], [address] , [place] tel: [phone] [facility] No Information 6 9 Management Case. [address], [place], [place], [address], [place]. tel:[phone] Referring Provider: Case Management, [address], [place], [address]. tel:[phone] [facility], [address], [place], [place], [address] , [place] tel: [phone] [facility] No Information 7-201 9 Management Case. [address], [place], [place], [address], [place]. tel:[phone] Referring Provider: Case Management, [address], [place], [address]. tel:[phone] [facility], [address], [place], [place], [address] , [place] tel: [phone] [facility] No Information 2 9 Management Case. [address], [place], [place], [address], [place]. tel:[phone] Referring Provider: Case Management, [address], [place], [address]. tel:[phone] [facility], [address], [place], [place], [address] , [place] tel:[phone] [facility] No Information 9-201 8 Management Case. [address], [place], [address], [place]. tel:[phone] Referring Provider: Case Management, [address], [place], [address]. tel:[phone] OFFICE/OUTPA TIENT VISIT, EST [facility], [address], [place], [place], [address] , [place] tel: [phone] [facility] headache (chief complaint)lab test (chief complaint) Headache 2 No Information OFFICE/OUTPA TIENT VISIT, EST [facility], [address], [place], [place], [address] , [place] tel: [phone] [facility] headache (chief complaint)cou gh and congestion (chief complaint)sor e throat (chief complaint) Acute nasopharyngi tis (common cold)Unspeci fied essential hypertension 2 No Information [facility], [address], [place], [place], [address] , [place] tel: [phone] [facility] No Information 1 No Information OFFICE/OUTPA TIENT VISIT, EST [facility], [address], [place], [place], [address] , [place] tel: [phone] [facility] flu [facility] (chief complaint) No Information 1 No Information [facility], [address], [place], [place], [address] , [place] tel: [phone] [facility] No Information 1 No Information [facility], [address], [place], [place], [address] , [place] tel: [phone] [facility] No Information 1 No Information [facility], [address], [place], [place], [address] , [place] tel: [phone] [facility] No Information 1 No Information [facility], [address], [place], [place], [address] , [place] tel: [phone] [facility] No Information 1 No Information OFFICE/OUTPA TIENT VISIT, EST [facility], [address], [place], [place], [address] , [place] tel: [phone] [facility] hypertension (chief complaint) Benign essential hypertension Contact dermatitis and other eczema, unspecified cause 1 No Information [facility], [address], [place], [place], [address] , [place] tel: [phone] [facility] No Information 1 No Information [facility], [address], [place], [place], [address] , [place] tel: [phone] [facility] Microscopic hematuria 1 No Information OFFICE OUTPT EST 25 MIN [facility], [address], [place], [place], [address] , [place] tel: [phone] [facility] smoking cessation (chief complaint)hyp ertension (chief complaint)aci d reflux (chief complaint) Unspecified essential hypertension Microscopic hematuriaEso phageal refluxUnspec ified type schizophreni a, unspecified stateEsophag eal reflux 1 No Information OFFICE/OUTPA TIENT VISIT, EST [facility], [address], [place], [place], [address] , [place] tel: [phone] [facility] medication refill (chief complaint)hyp ertension (chief complaint) Microscopic hematuriaUns pecified essential hypertension 0 No Information Referring Provider: Michael Hidalgo, [address], [place], [address]. tel:[phone] [facility], [address], [place], [place], [address] , [place] tel: [phone] [facility] Microscopic hematuria 0 No Information OFFICE OUTPT EST 25 MIN [facility], [address], [place], [place], [address] , [place] tel: [phone] [facility] hypertension (chief complaint)lon t results (chief complaint) Unspecified essential hypertension Microscopic hematuriaNon dependent tobacco use disorderUnsp ecified type schizophreni a, unspecified stateConjunc tivitis, unspecified 0 No Information [facility], [address], [place], [place], [address] , [place] tel: [phone] [facility] Microscopic hematuria 0 No Information OFFICE OUTPT EST 25 MIN [facility], [address], [place], [place], [address] , [place] tel: [phone] [facility] cough (chief complaint)smo sergei cessation rx (chief complaint) Nondependent tobacco use disorderUnsp ecified essential hypertension Unspecified type schizophreni a, unspecified stateAllergi c rhinitis, cause unspecified 0 No Information [facility], [address], [place], [place], [address] , [place] tel: [phone] [facility] No Information 0 No Information OFFICE OUTPT EST 25 MIN [facility], [address], [place], [place], [address] , [place] tel: [phone] [facility] hypertension (chief complaint)smo sergei cessation (chief complaint)col d symptoms (chief complaint) Unspecified essential hypertension Acute upper respiratory infections of unspecified siteUnspecif ied type schizophreni a, unspecified stateNondepe ndent tobacco use disorderDerm atophytosis of foot 0 No Information OFFICE/OUTPA TIENT VISIT, EST [facility], [address], [place], [place], [address] , [place] tel: [phone] [facility] flu shot (chief complaint)res ults (chief complaint) Need for prophylactic vaccination and inoculation, influenza 9 No Information OFFICE OUTPT EST 25 MIN [facility], [address], [place], [place], [address] , [place] tel: [phone] [facility] followup (chief complaint) Acute upper respiratory infections of unspecified siteUnspecif ied essential hypertension Acute upper respiratory infections of unspecified siteUnspecif ied type schizophreni a, unspecified stateAneurys m of heart (wall)Aneury sm of heart (wall)Seborr heic dermatitis 9 No Information [facility], [address], [place], [place], [address] , [place] tel: [phone] [facility] No Information 9 No Information [facility], [address], [place], [place], [address] , [place] tel: [phone] [facility] lab test (chief complaint) Laboratory examination 9 No Information OFFICE/OUTPA TIENT VISIT, EST [facility], [address], [place], [place], [address] , [place] tel: [phone] [facility] FOLLOWUP (chief complaint)hyp ertension (chief complaint)dep ression (chief complaint) Unspecified essential hypertension Depressive disorder, not elsewhere classifiedOt her specified drug dependence, unspecified useDepressiv e disorder, not elsewhere classified 9 No Information [facility], [address], [place], [place], [address] , [place] tel: [phone] [facility] No Information 9 No Information OFFICE OUTPT EST 10 MIN [facility], [address], [place], [place], [address] , [place] tel: [phone] [facility] Issue of repeat prescription s 9 No Information OFFICE O/P EST 5 MIN [facility], [address], [place], [place], [address] , [place] tel: [phone] [facility] FOLLOW-UP EXAM NOS 8 No Information OFFICE O/P EST 5 MIN [facility], [address], [place], [place], [address] , [place] tel: [phone] [facility] ISSUE OF MED CERTIF NEC 8 No Information OFFICE O/P EST 5 MIN [facility], [address], [place], [place], [address] , [place] tel: [phone] [facility] SCREENING-PU LMONARY TB 8 No Information OFFICE/OUTPA TIENT VISIT, EST [facility], [address], [place], [place], [address] , [place] tel: [phone] [facility] HYPERTENSION NOSROUTINE MEDICAL EXAM Nov-0 6-200 8 No Information OFFICE/OUTPA TIENT VISIT, EST [facility], [address], [place], [place], [address] , tel: [phone] [facility] HYPERTENSION NOSACUTE PHARYNGITIS Oct-2 7-200 8 No Information OFFICE OUTPT EST 10 MIN [facility], [address], [place], [place], [address] , [place] tel: [phone] [facility] COUGH Sep-2 2-200 8 No Information OFFICE CONSULT, 15 MIN, 3 GROVER COMPS: PROB FOCUS HX; PROB FOCUS EXAM; STRTFWD [facility], [address], [place], [place], [address] , [place] tel: [phone] [facility] COUNSELING NOS Sep-1 6-200 8 No Information OFFICE/OUTPA TIENT VISIT, EST [facility], [address], [place], [place], [address] , [place] tel: [phone] [facility] ABDMNAL PAIN UNSPCF SITEABNORM ELECTROCARDI OGRAMHEADACH E Sep-1 5-200 8 No Information OFFICE/OUTPA TIENT VISIT, EST [facility], [address], [place], [place], [address] , [place] tel: [phone] [facility] ACUTE PHARYNGITIS Sep-1 1-200 8 No Information [facility], [address], [place], [place], [address] , [place] tel: [phone] [facility] DENTAL EXAMINATION Sep-0 9-200 8 No Information OFFICE/OUTPA TIENT VISIT, EST [facility], [address], [place], [place], [address] , [place] tel: [phone] [facility] VITAMIN D DEFICIENCY NOSHYPERTENS ION NOS Sep-0 8-200 8 No Information OFFICE OUTPT EST 10 MIN [facility], [address], [place], [place], [address] , [place] tel: [phone] [facility] ISSUE OF MED CERTIF NEC 8 No Information [facility], [address], [place], [place], [address] , [place] tel: [phone] [facility] DENTAL EXAMINATION 8 No Information OFFICE/OUTPA TIENT VISIT, EST [facility], [address], [place], [place], [address] , [place] tel: [phone] [facility] HYPERTENSION NOSNEED PRPHYL VC VRL HEPAT 8 No Information HOME VST EST PT LOW TO MOD SEVERITY [facility], [address], [place], [place], [address] , [place] tel: [phone] [facility] OTHER SPECFD COUNSELING 8 No Information [facility], [address], [place], [place], [address] , [place] tel: [phone] [facility] LABORATORY EXAMINATION 8 No Information HOME VST EST PT LOW TO MOD SEVERITY [facility], [address], [place], [place], [address] , [place] tel: [phone] [facility] NUTRITION DEFICIENCY NOSOTHER SPECFD COUNSELING 8 No Information [facility], [address], [place], [place], [address] , [place] tel: [phone] [facility] LABORATORY EXAMINATION 8 No Information OFFICE/OUTPA TIENT VISIT, EST [facility], [address], [place], [place], [address] , [place] tel: [phone] [facility] DRUG DEPEND NEC-UNSPECHY PERTENSION NOSDERMATOPH YTOSIS OF FOOT 8 No Information HOME VST NEW PT HI SEVERITY [facility], [address], [place], [place], [address] , [place] tel: [phone] [facility] NUTRITION DEFICIENCY NOSOTHER SPECFD COUNSELING 8 No Information OFFICE/OUTPA TIENT VISIT, EST [facility], [address], [place], [place], [address] , [place] tel:[phone] [facility] VITAMIN D DEFICIENCY NOSSCHIZOPHR ENIA NOS-UNSPECHY PERTENSION NOS 8 No Information [facility], [address], [place], [place], [address] , [place] tel: [phone] [facility] DENTAL EXAMINATION 8 No Information OFFICE CONSULT, 15 MIN, 3 GROVER COMPS: PROB FOCUS HX; PROB FOCUS EXAM; STRTFWD [facility], [address], [place], [place], [address] , [place] tel: [phone] [facility] COUNSELING NOS 8 No Information OFFICE OUTPT EST 10 MIN [facility], [address], [place], [place], [address] , [place] tel: [phone] [facility] ISSUE REPEAT PRESCRIPT 8 No Information OFFICE/OUTPA TIENT VISIT, EST [facility], [address], [place], [place], [address] , [place] tel: [phone] [facility] ALLERGIC RHINITIS NOSTOBACCO USE DISORDERHYPE RTENSION NOSDERMATOPH YTOSIS OF FOOT 7 No Information OFFICE CONSULT, 15 MIN, 3 GROVER COMPS: PROB FOCUS HX; PROB FOCUS EXAM; STRTFWD [facility], [address], [place], [place], [address] , [place] tel: [phone] [facility] COUNSELING NOS 7 No Information [facility], [address], [place], [place], [address] , [place] tel: [phone] [facility] DENTAL EXAMINATION 7 No Information OFFICE OUTPT EST 10 MIN [facility], [address], [place], [place], [address] , [place] tel: [phone] [facility] ACUTE URI NOSALLERGIC RHINITIS NOS 7 No Information OFFICE OUTPT EST 10 MIN [facility], [address], [place], [place], [address] , [place] tel: [phone] [facility] ACUTE URI NOS 7 No Information [facility], [address], [place], [place], [address] , [place] tel: [phone] [facility] DENTAL EXAMINATION 7 No Information OFFICE CONSULT, 15 MIN, 3 GROVER COMPS: PROB FOCUS HX; PROB FOCUS EXAM; STRTFWD [facility], [address], [place], [place], [address] , [place] tel: [phone] [facility] COUNSELING NOS 7 No Information OFFICE/OUTPA TIENT VISIT, EST [facility], [address], [place], [place], [address] , [place] tel: [phone] [facility] DERMATITIS NOSDERMATOPH YTOSIS OF FOOTHYPERTEN ALEXI NOS 7 No Information OFFICE CONSULT, 15 MIN, 3 GROVER COMPS: PROB FOCUS HX; PROB FOCUS EXAM; STRTFWD [facility], [address], [place], [place], [address] , [place] tel: [phone] [facility] COUNSELING NOS 7 No Information [facility], [address], [place], [place], [address] , [place] tel: [phone] [facility] DENTAL EXAMINATION 7 No Information OFFICE/OUTPA TIENT VISIT, EST [facility], [address], [place], [place], [address] , [place] tel: [phone] [facility] HYPERTENSION NOSCHEST PAIN NECANEURYSM OF HEART NECDEPRESSIV E DISORDER NEC 0 7 No Information OFFICE/OUTPA TIENT VISIT, EST [facility], [address], [place], [place], [address] , [place] tel: [phone] [facility] ABDMNAL PAIN UNSPCF SITEHYPERTEN ALEXI NOSNONSPECIF SKIN ERUPT NEC Nov- 7 No Information OFFICE OUTPT EST 10 MIN [facility], [address], [place], [place], [address] , [place] tel: [phone] [facility] ISSUE REPEAT PRESCRIPTABD MNAL PAIN UNSPCF SITE 6 No Information OFFICE CONSULT, 15 MIN, 3 GROVER COMPS: PROB FOCUS HX; PROB FOCUS EXAM; STRTFWD [facility], [address], [place], [place], [address] , [place] tel: [phone] [facility] COUNSELING NOS 6 No Information OFFICE/OUTPA TIENT VISIT, EST [facility], [address], [place], [place], [address] , [place] tel: [phone] [facility] DEPRESSIVE DISORDER NECABDMNAL PAIN UNSPCF SITE 6 No Information OFFICE OUTPT EST 10 MIN [facility], [address], [place], [place], [address] , [place] tel: [phone] [facility] ISSUE REPEAT PRESCRIPTABD MNAL PAIN UNSPCF SITE 6 No Information OFFICE OUTPT EST 10 MIN [facility], [address], [place], [place], [address] , [place] tel: [phone] [facility] ISSUE REPEAT PRESCRIPT 6 No Information HOME VST EST PT LOW TO MOD SEVERITY [facility], [address], [place], [place], [address] , [place] tel: [phone] [facility] SCHIZOPHRENI FORM DIS NOS 6 No Information HOME VST EST PT LOW TO MOD SEVERITY [facility], [address], [place], [place], [address] , [place] tel: [phone] [facility] SCHIZOPHRENI FORM DIS NOS 6 No Information HOME VST EST PT LOW TO MOD SEVERITY [facility], [address], [place], [place], [address] , [place] tel: [phone] [facility] SCHIZOPHRENI A NOS-UNSPEC 6 No Information OFFICE/OUTPA TIENT VISIT, EST [facility], [address], [place], [place], [address] , [place] tel:[phone] [facility] DEPRESSIVE DISORDER NECHELICOBAC TER PYLORICHEST PAIN NEC 6 No Information OFFICE OUTPT EST 25 MIN [facility], [address], [place], [place], [address] , [place] tel:[phone] [facility] OPEN WOUND ARM MULT/NOS 6 No Information OFFICE OUTPT EST 10 MIN [facility], [address], [place], [place], [address] , [place] tel: [phone] [facility] VERNAL CONJUNCTIVIT IS 6 No Information OFFICE/OUTPA TIENT VISIT, EST [facility], [address], [place], [place], [address] , [place] tel: [phone] [facility] INSECT BITE FOREARMDEPRE SSIVE DISORDER NECABDMNAL PAIN UNSPCF SITE 6 No Information [facility], [address], [place], [place], [address] , [place] tel: [phone] [facility] DENTAL EXAMINATION 6 No Information OFFICE CONSULT, 15 MIN, 3 GROVER COMPS: PROB FOCUS HX; PROB FOCUS EXAM; STRTFWD [facility], [address], [place], [place], [address] , [place] tel: [phone] [facility] COUNSELING NOS 6 No Information HOME VST EST PT LOW TO MOD SEVERITY [facility], [address], [place], [place], [address] , [place] tel: [phone] [facility] HEADACHE 6 No Information OFFICE OUTPT NEW 30 MIN [facility], [address], [place], [place], [address] , [place] tel: [phone] [facility] ACUTE URI NOSJOINT PAIN-SHLDER 5200 6 No Information Family History Family Member Type Diagnosis Age At Onset Mother Problem (finding) Maternal histo ry of diabetes mellitus Maternal grandmother Problem (finding) stroke Immunizations Vaccine Date Status Comments Flu (split) (3 yrs or older) administered Note: [facility][id number] ; Source: New Immunization Record Flu (split) (3 yrs or older) administered Note: [facility] [place] [id number] VIS DATE 03/26/2010 ; Source: New Immunization Record Twinrix administered Note: GIVEN 1ML IM [facility] [place] [id number] VIS DATE 09/30/2008 ; Source: New Immunization Record Flu (split) (3 yrs or older) administered Note: [facility] [id number] ; Source: New Immunization Record INFLUENZA VIRUS [...] Status Goal PSA. Due on due Goal Lipid Panel. Due on 011 due Goal Influenza Vaccine. Due on due Goal BMP fasting. Due on 011 due Goal AST. Due on due Goal ALT. Due on due Referral Referred To: [address], [phone] Ordered: Referral: [facility]. Dermatology. Follow-up and Treat. Appointment date/timeframe: 08/23/2009 ordered Future Order: Lab Order POC GLUC OSE ([id number]), Appointment on: , Sent on: Sent Future Order: Lab Order BASIC ME TABOLIC PANEL W/EGFR ([id number]), Appointment on: , Sent on: Sent History [...]
[2024-11-14 11:49] LABS: Vitamin D 25 Hydroxy 14.8 ng/mL
== END 2024-11-14 10:00 | disposition home or self-care (01) ==
LOC: ANHLAB 10:02
PROVIDERS: PCP Emergency Medicine; Visit Provider Emergency Medicine
DX: E78.5 Hyperlipidemia, unspecified (principal); E55.9 Vitamin D deficiency, unspecified
CPT/HCPCS: 36415; 80053; 80061; 82306

== ENCOUNTER 2025-06-30 14:51 | Outpatient (CLI) | payer MEDICARE, MEDICAID, SELFPAY ==
--- OUTSIDE RECORDS SUMMARY | 2023-06-29 18:00 | XMS_ITS | Continuity of Care Document ---
Author Organization [facility] Address [address] [place] [address] Phone Care Team Providers Care Six Pack Packer Name Role Phone Management, Case Unavailable Unavailable Management, Case Unavailable Unavailable Allergies, Adverse Reactions, Alerts Substance Reaction Status Criticality No Known Drug Allergies Active No I nformation Medications Medication Instructions Dosage Effective Dates (start - stop) Status Comments Hyzaar 100 mg-25 mg Tab take 1 tablet by oral route every day 1.00 tablet - Active ranitidine 150 mg Tab take 1 tablet (150MG) by ORAL route 2 times every day - Active Athlete's Foot (clotrimazole) 1 % Topical Cream apply by TOPICAL route 2 times every day to affected areas - Active loratadine 10 mg Tab take 1 tablet (10MG) by ORAL route every day 10 MG - Active Patanol 0.1 % Eye Drops instill 1 drop by Ophthalmic route 2 times every day into affected eye - Active triamcinolone acetonide 0.025 % Topical Cream apply by topical route 2 times every day a thin layer to the affected area(s) 0.00 - Active Nasacort AQ 55 mcg Nasal [place] Aerosol inhale 2 spray by Intranasal route every day in each nostril - Active Pharmacy assistance program Nicoderm CQ 21 mg/24 hr daily Patch apply 1 patch (21MG) by transdermal route every day 21 MG - Active DO NOT SMOKE while using this medication Risperdal 3 mg Tab take 1 tablet (3MG) by ORAL route every day at bedtime 3 MG - Active acetaminophen 500 mg Tab take 2 tablet (1000MG) by ORAL route 3 times every day as needed 1000 MG - Active Halfprin 162 mg Tab take 1 tablet (162MG) by ORAL route every day - Active Procedures Procedure Date Alcohol and/or drug services; case [facility] Voided Encounter Alcohol and/or drug services; case manag [facility] Alcohol and/or drug services; case manag [facility] Alcohol and/or drug services; case manag [facility] Alcohol and/or drug services; case manag [facility] Alcohol and/or drug services; case manag [facility] Alcohol and/or drug services; case [facility] Alcohol and/or drug services; case [facility] MENTAL HEALTH SERVICE PLAN DEVELOPMENT B Y NON-PHYSICIAN MENTAL HEALTH SERVICE PLAN DEVELOPMENT B Y NON-PHYSICIAN Alcohol and/or drug services; case manag [facility] MENTAL HEALTH SERVICE PLAN DEVELOPMENT B Y NON-PHYSICIAN Alcohol and/or drug services; case [facility] Alcohol and/or drug services; case [facility] MENTAL HEALTH SERVICE PLAN DEVELOPMENT B Y NON-PHYSICIAN Alcohol and/or drug services; case [facility] MENTAL HEALTH SERVICE PLAN DEVELOPMENT B Y NON-PHYSICIAN MENTAL HEALTH SERVICE PLAN DEVELOPMENT B Y NON-PHYSICIAN MENTAL HEALTH SERVICE PLAN DEVELOPMENT B Y NON-PHYSICIAN Alcohol and/or drug services; case [facility] Alcohol and/or drug services; case [facility] Alcohol and/or drug services; case [facility] Debridement, Full Mouth, For Comprehensi ve Evaluation/Diagnosis Unspecified Periodontal Procedure, By Re port Dental Bitewings Radiographic, Four Imag es Dental Panoramic Radiographic Image Comprehensive Oral Evaluation-New/Est Pt Exempt From Sealant Measure Caries Risk Assess & Doc High Risk Sep-0 Resin Composite, 2 Surfaces, Posterior F MENTAL HEALTH SERVICE PLAN DEVELOPMENT B Y NON-PHYSICIAN Comprehensive Oral Evaluation-New/Est Pt Dental Bitewings Radiographic, Four Imag es Periapical Radiographic, first Image Oct Periapical Radiographic Image, ea addl M Periapical Radiographic Image, ea addl M Periapical Radiographic Image, ea addl M Alcohol and/or drug services; case manag ement Alcohol and/or drug services; case manag ement Alcohol and/or drug services; case manag ement MENTAL HEALTH SERVICE PLAN DEVELOPMENT B Y NON-PHYSICIAN MENTAL HEALTH SERVICE PLAN DEVELOPMENT B Y NON-PHYSICIAN MENTAL HEALTH SERVICE PLAN DEVELOPMENT B Y NON-PHYSICIAN MENTAL HEALTH SERVICE PLAN DEVELOPMENT B Y NON-PHYSICIAN MENTAL HEALTH SERVICE PLAN DEVELOPMENT B Y NON-PHYSICIAN MENTAL HEALTH SERVICE PLAN DEVELOPMENT B Y NON-PHYSICIAN MENTAL HEALTH SERVICE PLAN DEVELOPMENT B Y NON-PHYSICIAN OFFICE/OUTPATIENT VISIT, EST OFFICE/OUTPATIENT VISIT, EST INFLUENZA VACCINE, AGE 3YRS+ OFFICE/OUTPATIENT VISIT, EST Voided Encounter OFFICE/OUTPATIENT VISIT, EST OFFICE OUTPT EST 25 MIN OFFICE/OUTPATIENT VISIT, EST INFLUENZA VACCINE, AGE 3YRS+ THER PROPH/DX NJX SUBQ/IM OFFICE OUTPT EST 25 MIN COLLECTION OF VENOUS BLOOD BY VENIPUNCTU RE OFFICE OUTPT EST 25 MIN HEP A/HEP B VACC, ADULT IM THER PROPH/DX NJX SUBQ/IM Comprehensve oral evaluation Dental bitewings two films Oral hygiene instruction Debridement, Full Mouth COLLECTION OF VENOUS BLOOD BY VENIPUNCTU RE OFFICE OUTPT EST 25 MIN OFFICE/OUTPATIENT VISIT, EST OFFICE OUTPT EST 25 MIN COLLECTION OF VENOUS BLOOD BY VENIPUNCTU RE COLLECTION OF CAPILLARY BLOOD SPECIMEN ( EG, FINGER, HEEL, EAR STICK) COLLECTION OF VENOUS BLOOD BY VENIPUNCTU RE OFFICE/OUTPATIENT VISIT, EST OFFICE OUTPT EST 10 MIN OFFICE O/P EST 5 MIN OFFICE O/P EST 5 MIN OFFICE O/P EST 5 MIN SKIN TEST; TUBERCULOSIS, INTRADERMAL Jun INFLUENZA VACCINE, AGE 3YRS+ BLOOD COUNT; COMPLETE (CBC), AUTOMATED (HGB, HCT, RBC, WBC AND PLATELET COUNT) HEPATITIS B CORE ANTIBODY (HBCAB); TOTAL OFFICE/OUTPATIENT VISIT, EST URNLS DIP STICK/TABLET RGNT AUTO W/O TRISHA OFFICE/OUTPATIENT VISIT, EST OFFICE OUTPT EST 10 MIN OFFICE CONSULT, 15 MIN, 3 KE Y COMPS: PROB FOCUS HX; PROB FOCUS EXAM; STRTFWD OFFICE/OUTPATIENT VISIT, EST OFFICE/OUTPATIENT VISIT, EST Periapical first film [employer] one surface COLLECTION OF VENOUS BLOOD BY VENIPUNCTU RE CALCIFEDIOL (25-OH VITAMIN D-3) 008 OFFICE/OUTPATIENT VISIT, EST OFFICE OUTPT EST 10 MIN Comprehensve oral evaluation Dental bitewings two films Dental prophylaxis adult Topical fluor w/o prophy adult 08 Oral hygiene instruction OFFICE/OUTPATIENT VISIT, EST HEP A/HEP B VACC, ADULT IM HOME VST EST PT LOW TO MOD SEVERITY COLLECTION OF VENOUS BLOOD BY VENIPUNCTU RE LIPID PANEL HOME VST EST PT LOW TO MOD SEVERITY BASIC METABOLIC PANEL CALCIUM TOTAL LIPID PANEL COLLECTION OF VENOUS BLOOD BY VENIPUNCTU RE GLUCOSE BLOOD TEST HEP A/HEP B VACC, ADULT IM OFFICE/OUTPATIENT VISIT, EST HOME VST NEW PT HI SEVERITY COLLECTION OF VENOUS BLOOD BY VENIPUNCTU RE OFFICE/OUTPATIENT VISIT, EST CALCIFEDIOL (25-OH VITAMIN D-3) 008 OFFICE CONSULT, 15 MIN, 3 KE Y COMPS: PROB FOCUS HX; PROB FOCUS EXAM; [facility] Periapical first film Limit oral eval problem focused 008 OFFICE OUTPT EST 10 MIN OFFICE/OUTPATIENT VISIT, EST OFFICE CONSULT, 15 MIN, 3 KE Y COMPS: PROB FOCUS HX; [facility] [employer] [facility] OFFICE OUTPT EST 10 MIN OFFICE OUTPT EST 10 MIN Topical fluor w/o prophy adult 07 Dental prophylaxis adult Comprehensve oral evaluation OFFICE CONSULT, 15 MIN, 3 KE Y COMPS: PROB FOCUS HX; PROB FOCUS EXAM; [facility] URNLS DIP STICK/TABLET RGNT AUTO W/O TRISHA THYROID STIMULATING HORMONE (TSH) CALCIFEDIOL (25-OH VITAMIN D-3) 007 SYPHILIS TEST; QUALITATIVE (EG, VDRL, RP R, ART) COLLECTION OF VENOUS BLOOD BY VENIPUNCTU RE OFFICE/OUTPATIENT VISIT, EST COMPRE METAB PANEL BLOOD COUNT; COMPLETE (CBC), AUTOMATED (HGB, HCT, RBC, WBC AND PLATELET COUNT) ANTIBODY; HIV-1 AND HIV-2, SINGLE ASSAY INFLUENZA VACCINE, AGE 3YRS+ OFFICE CONSULT, 15 MIN, 3 KE Y COMPS: PROB FOCUS HX; PROB FOCUS EXAM; STRTFWD Dental bitewings two films Debridement, Full Mouth Oral hygiene instruction Limit oral eval problem focused 007 OFFICE/OUTPATIENT VISIT, EST OFFICE/OUTPATIENT VISIT, EST COLLECTION OF VENOUS BLOOD BY VENIPUNCTU RE AMYLASE OFFICE OUTPT EST 10 MIN OFFICE CONSULT, 15 MIN, 3 KE Y COMPS: PROB FOCUS HX; PROB FOCUS EXAM; STRTFWD COLLECTION OF VENOUS BLOOD BY VENIPUNCTU RE LIPASE OFFICE/OUTPATIENT VISIT, EST AMYLASE OFFICE OUTPT EST 10 MIN OFFICE OUTPT EST 10 MIN HOME VST EST PT LOW TO MOD SEVERITY HOME VST EST PT LOW TO MOD SEVERITY HOME VST EST PT LOW TO MOD SEVERITY OFFICE/OUTPATIENT VISIT, EST OFFICE OUTPT EST 25 MIN OFFICE OUTPT EST 10 MIN COLLECTION OF VENOUS BLOOD BY VENIPUNCTU RE LIPASE BLOOD COUNT; COMPLETE (CBC), AUTOMATED (HGB, HCT, RBC, WBC AND PLATELET COUNT) COMPRE METAB PANEL AMYLASE CALCIFEDIOL (25-OH VITAMIN D-3) 006 THYROID STIMULATING HORMONE (TSH) OFFICE/OUTPATIENT VISIT, EST ANTIBODY; HELICOBACTER PYLORI 6 Dental bitewings two films Debridement, Full Mouth Limit oral eval problem focused 006 Oral hygiene instruction OFFICE CONSULT, 15 MIN, 3 KE Y COMPS: PROB FOCUS HX; PROB FOCUS EXAM; STRTFWD HOME VST EST PT LOW TO MOD SEVERITY OFFICE OUTPT NEW 30 MIN Advance Directives Directive Yes / No Effective Date File Name No Information Encounters Encounter Description Practice Location Reason(s) For Visit Diagnoses Date Provider Providers Copied on Encounter [facility], [address], [place], [place], [address] , tel: [phone] Longterm No Information 3 Management Case. [address], [place], [place], [address], . tel:[phone] Consulting Provider: Case Management, [address], [place], [place], [address] [place] [address]. tel:[phone] [facility], [address], [place], [place], [address] , tel: [phone] Longterm No Information 3 Management Case. [address], [place], [place], [address], . tel:[phone] Consulting Provider: Case Management, [address], [place], [address] [place] [address]. tel:[phone] [facility], [address], [place], [place], [address] , tel: [phone] Longterm No Information 3 Management Case. [address], [place], [place], [address], . tel:[phone] [facility], [address], [place], [address] , tel: [phone] Longterm No Information 3 Management Case. [address], [place], [place], [address], . tel:[phone] [facility], [address], [place], [address] , [place] tel: [phone] Longterm No Information 3 Management Case. [address], [place], [place], [address], . tel:[phone] [facility], [address], [place], [place], [address] , tel: [phone] Longterm No Information 3 Management Case. [address], [place], [address], [place]. tel:[phone] [facility], [address], [place], [address] , [place] tel:[phone] Longterm No Information 3 Management Case. [address], [place], [address], [place]. tel:[phone] [facility], [address], [place], [place], [address] , [place] tel:[phone] Longterm No Information 3 Management Case. [address], [place], [address], [place]. tel:[phone] [facility], [address], [place], [place], [address] , [place] tel:[phone] Longterm No Information 3 Management Case. [address], [place], [address], [place]. tel:[phone] [facility], [address], [place], [address] , [place] tel:[phone] Longterm No Information 3 Management Case. [address], [place], [address], [place]. tel:[phone] [facility], [address], [place], [address] , [place] tel:[phone] Longterm No Information 3 Management Case. [address], [place], [place], [address], [place]. tel:[phone] [facility], [address], [place], [address] , [place] tel:[phone] Longterm No Information 3 Management Case. [address], [place], [place], [address], [place]. tel:[phone] Consulting Provider: Case Management, [address], [place], [address]. tel:[phone] [facility], [address], [place], [place], [address] , [place] tel:[phone] Longterm No Information 0 3 Management Case. [address], [place], [place], [address], [place]. tel:[phone] Consulting Provider: Case Management, [address], [place], [address]. tel:[phone] [facility], [address], [place], [place], [address] , [place] tel:[phone] Longterm No Information 0 3 Management Case. [address], [place], [address], [place]. tel:[phone] [facility], [address], [place], [place], [address] , tel: [phone] Longterm No Information 3 Management Case. [address], [place], [place], [address], [place]. tel:[phone] [facility], [address], [place], [place], [address] , [place] tel: [phone] Longterm No Information 2 Management Case. [address], [place], [place], [address], [place]. tel:[phone] Consulting Provider: Case Management, [address], [place], [address]. tel:[phone] [facility], [address], [place], [place], [address] , [place] tel: [phone] Longterm No Information 6 2 Management Case. [address], [place], [address], [place]. tel:[phone] Consulting Provider: Case Management, [address], [place], [address]. tel:[phone] [facility], [address], [place], [place], [address] , tel: [phone] Longterm No Information 0 3-202 2 Management Case. [address], [place], [address], [place]. tel:[phone] Consulting Provider: Case Management, [address], [place], [address]. tel:[phone] [facility], [address], [place], [place], [address] , [place] tel:[phone] Longterm No Information 2 Management Case. [address], [place], [place], [address], [place]. tel:[phone] Consulting Provider: Case Management, [address], [place], [address]. tel:[phone] [facility], [address], [place], [place], [address] , tel: [phone] Longterm No Information 2 Management Case. [address], [place], [place], [address], . tel:[phone] Consulting Provider: Case Management, [address], [place], [address]. tel:[phone] [facility], [address], [place], [address] , [place] tel: [phone] Longterm No Information 2 Management Case. [address], [place], [address], [place]. tel:[phone] Consulting Provider: Case Management, [address], [place], [address]. tel:[phone] [facility], [address], [place], [place], [address] , [place] tel:[phone] Longterm No Information 2 Management Case. [address], [place], [place], [address], [place]. tel:[phone] Consulting Provider: Case Management, [address], [place], [address]. tel:[phone] [facility], [address], [place], [place], [address] , [place] tel:[phone] Longterm No Information 0 2 Management Case. [address], [place], [place], [address], [place]. tel:[phone] Consulting Provider: Case Management, [address], [place], [address]. tel:[phone] [facility], [address], [place], [place], [address] , [place] tel: [phone] [facility] [place] Chronic periodontiti s, generalized, slightEncoun ter for dental exam and cleaning w abnormal findings 2 Piper Conchita. [address], [place], [place], [address]. tel:[phone] [facility], [address], [place], [place], [address] , [place] tel: [phone] [facility] [place] Encounter for dental exam and cleaning w abnormal findings 1 No Information [facility], [address], [place], [place], [address] , [place] tel: [phone] [facility] [place] Encounter for dental exam and cleaning w abnormal findings 1 No Information [facility], [address], [place], [place], [address] , [place] tel: [phone] Longterm No Information 1 Management Case. [address], [place], [place], [address], . [phone] Consulting Provider: Case Management, [address], [place], [address]. tel:[phone] [facility], [address], [place], [place], [address] , [place] tel: [phone] [facility] [place] Encounter for dental exam and cleaning w abnormal findings 0 0 No Information [facility], [address], [place], [place], [address] , [place] tel: [phone] Longterm No Information 0 201 9 Management Case. [address], [place], [place], [address], [place]. tel:[phone] Referring Provider: Case Management, [address], [place], [address]. tel:[phone] [facility], [address], [place], [place], [address] , tel: [phone] Longterm No Information 9 Management Case. [address], [place], [address], [place]. tel:[phone] Referring Provider: Case Management, [address], [place], [address]. tel:[phone] [facility], [address], [place], [place], [address] , [place] tel: [phone] Longterm No Information 9 Management Case. [address], [place], [place], [address], [place]. tel:[phone] Referring Provider: Case Management, [address], [place], [address]. tel:[phone] [facility], [address], [place], [place], [address] , [place] tel: [phone] Longterm No Information 9 Management Case. [address], [place], [address], [place]. tel:[phone] Referring Provider: Case Management, [address], [place], [address]. tel:[phone] [facility], [address], [place], [address] , [place] tel: [phone] Longterm No Information 9 Management Case. [address], [place], [address], [place]. tel:[phone] Referring Provider: Case Management, [address], [place], [address]. tel:[phone] [facility], [address], [place], [address] , [place] tel: [phone] Longterm No Information 9 Management Case. [address], [place], [address], [place]. tel:[phone] Referring Provider: Case Management, [address], [place], [address]. tel:[phone] [facility], [address], [place], [place], [address] , [place] tel: [phone] Longterm No Information 9 Management Case. [address], [place], [place], [address], [place]. tel:[phone] Referring Provider: Case Management, [address], [place], [address]. tel:[phone] [facility], [address], [place], [place], [address] , tel: [phone] Longterm No Information 9 Management Case. [address], [place], [place], [address], [place]. tel:[phone] Referring Provider: Case Management, [address], [place], [address]. tel:[phone] [facility], [address], [place], [place], [address] , tel: [phone] Longterm No Information 9 Management Case. [address], [place], [address], [place]. tel:[phone] Referring Provider: Case Management, [address], [place], [address]. tel:[phone] [facility], [address], [place], [place], [address] , [place] tel: [phone] Longterm No Information 9-201 8 Management Case. [address], [place], [place], [address], [place]. tel:[phone] Referring Provider: Case Management, [address], [place], [address]. tel:[phone] OFFICE/OUTPA TIENT VISIT, EST [facility], [address], [place], [place], [address] , [place] tel: [phone] [facility] headache (chief complaint)lab test (chief complaint) Headache 2 No Information OFFICE/OUTPA TIENT VISIT, EST [facility], [address], [place], [place], [address] , [place] tel: [phone] [facility] [place] headache (chief complaint)cou gh and congestion (chief complaint)sor e throat (chief complaint) Acute nasopharyngi tis (common cold)Unspeci fied essential hypertension 2 No Information [facility], [address], [place], [place], [address] , [place] tel: [phone] Aless[facility] No Information 1 No Information OFFICE/OUTPA TIENT VISIT, EST [facility], [address], [place], [place], [address] , [place] tel: [phone] [facility] flu vaccine (chief complaint) No Information 1 No Information [facility], [address], [place], [place], [address] , [place] tel: [phone] Alessandra [facility] No Information 1 No Information [facility], [address], [place], [place], [address] , [place] tel: [phone] [facility] No Information 1 No Information [facility], [address], [place], [place], [address] , [place] [facility] [phone] [facility] No Information 1 No Information [facility], [address], [place], [place], [address] , [place] tel: [phone] [facility] No Information 1 No Information OFFICE/OUTPA TIENT VISIT, EST [facility], [address], [place], [place], [address] , [place] tel: [phone] [facility] hypertension (chief complaint) Benign essential hypertension Contact dermatitis and other eczema, unspecified cause 1 No Information [facility], [address], [place], [place], [address] , [place] tel: [phone] [facility] No Information 1 No Information [facility], [address], [place], [place], [address] , [place] tel: [phone] [facility] [place] Microscopic hematuria 1 No Information OFFICE OUTPT EST 25 MIN [facility], [address], [place], [place], [address] , [place] tel: [phone] [facility] [place] smoking cessation (chief complaint)hyp ertension (chief complaint)aci d reflux (chief complaint) Unspecified essential hypertension Microscopic hematuriaEso phageal refluxUnspec ified type schizophreni a, unspecified stateEsophag eal reflux 1 No Information OFFICE/OUTPA TIENT VISIT, EST [facility], [address], [place], [place], [address] , [place] tel: [phone] [facility] medication refill (chief complaint)hyp ertension (chief complaint) Microscopic hematuriaUns pecified essential hypertension 0 No Information Referring Provider: Michael Hidalgo, [address], [place], [address]. tel:[phone] [facility], [address], [place], [place], [address] , [place] tel: [phone] [facility] [place] Microscopic hematuria 0 No Information OFFICE OUTPT EST 25 MIN [facility], [address], [place], [place], [address] , [place] tel: [phone] [facility] hypertension (chief complaint)lon t results (chief complaint) Unspecified essential hypertension Microscopic hematuriaNon dependent tobacco use disorderUnsp ecified type schizophreni a, unspecified stateConjunc tivitis, unspecified 0 No Information [facility], [address], [place], [place], [address] , [place] tel: [phone] [facility] Microscopic hematuria 0 No Information OFFICE OUTPT EST 25 MIN [facility], [address], [place], [place], [address] , [place] tel: [phone] [facility] cough (chief complaint)smo sergei cessation rx (chief complaint) Nondependent tobacco use disorderUnsp ecified essential hypertension Unspecified type schizophreni a, unspecified stateAllergi c rhinitis, cause unspecified 0 No Information [facility], [address], [place], [place], [address] , [place] tel: [phone] [facility] No Information 0 No Information OFFICE OUTPT EST 25 MIN [facility], [address], [place], [place], [address] , [place] tel: [phone] [facility] hypertension (chief complaint)smo sergei cessation (chief complaint)col d symptoms (chief complaint) Unspecified essential hypertension Acute upper respiratory infections of unspecified siteUnspecif ied type schizophreni a, unspecified stateNondepe ndent tobacco use disorderDerm atophytosis of foot 0 No Information OFFICE/OUTPA TIENT VISIT, EST [facility], [address], [place], [place], [address] , [place] tel: [phone] [facility] flu shot (chief complaint)res ults (chief complaint) Need for prophylactic vaccination and inoculation, influenza 9 No Information OFFICE OUTPT EST 25 MIN [facility], [address], [place], [place], [address] , [place] tel: [phone] [facility] followup (chief complaint) Acute upper respiratory infections of unspecified siteUnspecif ied essential hypertension Acute upper respiratory infections of unspecified siteUnspecif ied type schizophreni a, unspecified stateAneurys m of heart (wall)Aneury sm of heart (wall)Seborr heic dermatitis 9 No Information [facility], [address], [place], [place], [address] , [place] tel: [phone] [facility] No Information 9 No Information [facility], [address], [place], [place], [address] , [place] tel: [phone] [facility] lab test (chief complaint) Laboratory examination 9 No Information OFFICE/OUTPA TIENT VISIT, EST [facility], [address], [place], [place], [address] , [place] tel: [phone] [facility] [place] FOLLOWUP (chief complaint)hyp ertension (chief complaint)dep ression (chief complaint) Unspecified essential hypertension Depressive disorder, not elsewhere classifiedOt her specified drug dependence, unspecified useDepressiv e disorder, not elsewhere classified 9 No Information [facility], [address], [place], [place], [address] , [place] tel: [id number] Historic Immunization Location No Information 9 No Information OFFICE OUTPT EST 10 MIN [facility], [address], [place], [place], [address] , [place] tel: [phone] Alessandra Fleming [facility] Issue of repeat prescription s 9 No Information OFFICE O/P EST 5 MIN [facility], [address], [place], [place], [address] , [place] tel: [phone] [facility]lesas[facility] FOLLOW-UP EXAM NOS 8 No Information OFFICE O/P EST 5 MIN [facility], [address], [place], [place], [address] , [place] tel: [phone] [facility] ISSUE OF MED CERTIF NEC 8 No Information OFFICE O/P EST 5 MIN [facility], [address], [place], [place], [address] , [place] [facility]: [phone] [facility] S[facility]-PU LMONARY TB 8 No Information OFFICE/OUTPA TIENT VISIT, EST [facility], [address], [place], [place], [address] , [place] tel: [phone] [facility] HYPERTENSION NOSROUTINE MEDICAL EXAM Nov-0 6-200 8 No Information OFFICE/OUTPA TIENT VISIT, EST [facility], [address], [place], [place], [address] , [place] tel: [phone] [facility] HYPERTENSION NOSACUTE PHARYNGITIS Oct-2 7-200 8 No Information OFFICE OUTPT EST 10 MIN [facility], [address], [place], [place], [address] , [place] tel: [phone] [facility] COUGH Sep-2 2-200 8 No Information OFFICE CONSULT, 15 MIN, 3 [place] COMPS: PROB FOCUS HX; PROB FOCUS EXAM; STRTFWD [facility], [address], [place], [place], [address] , [place] tel: [phone] [facility] COUNSELING NOS Sep-1 6-200 8 No Information OFFICE/OUTPA TIENT VISIT, EST [facility], [address], [place], [place], [address] , [place] tel: [phone] [facility] ABDMNAL PAIN UNSPCF SITEABNORM ELECTROCARDI OGRAMHEADACH E Sep-1 5-200 8 No Information OFFICE/OUTPA TIENT VISIT, EST [facility], [address], [place], [place], [address] , [place] tel: [phone] [facility] ACUTE PHARYNGITIS Sep-1 1-200 8 No Information [facility], [address], [place], [place], [address] , [place] tel: [phone] [facility] DENTAL EXAMINATION Sep-0 9-200 8 No Information OFFICE/OUTPA TIENT VISIT, EST [facility], [address], [place], [place], [address] , [place] tel: [phone] [facility] VITAMIN D DEFICIENCY NOSHYPERTENS ION NOS Sep-0 8-200 8 No Information OFFICE OUTPT EST 10 MIN [facility], [address], [place], [place], [address] , [place] tel: [phone] [facility] ISSUE OF MED CERTIF NEC Ebenezer-2 3-200 8 No Information [facility], [address], [place], [place], [address] , [place] tel: [phone] [facility] DENTAL EXAMINATION 8 No Information OFFICE/OUTPA TIENT VISIT, EST [facility], [address], [place], [place], [address] , [place] tel: [phone] [facility] HYPERTENSION NOSNEED PRPHYL VC VRL HEPAT 8 No Information HOME VST EST PT LOW TO MOD SEVERITY [facility], [address], [place], [place], [address] , [place] tel: [phone] [facility] OTHER SPECFD COUNSELING 8 No Information [facility], [address], [place], [place], [address] , [place] tel: [phone] [facility] LABORATORY EXAMINATION 8 No Information HOME VST EST PT LOW TO MOD SEVERITY [facility], [address], [place], [place], [address] , [place] tel: [phone] [facility] NUTRITION DEFICIENCY NOSOTHER SPECFD COUNSELING 8 No Information [facility], [address], [place], [place], [address] , [place] tel: [phone] [facility] LABORATORY EXAMINATION 8 No Information OFFICE/OUTPA TIENT VISIT, EST [facility], [address], [place], [place], [address] , [place] tel: [phone] [facility] DRUG DEPEND NEC-UNSPECHY PERTENSION NOSDERMATOPH YTOSIS OF FOOT 8 No Information HOME VST NEW PT HI SEVERITY [facility], [address], [place], [place], [address] , [place] tel: [phone] [facility] NUTRITION DEFICIENCY NOSOTHER SPECFD COUNSELING 8 No Information OFFICE/OUTPA TIENT VISIT, EST [facility], [address], [place], [place], [address] , [place] tel: [phone] [facility] VITAMIN D DEFICIENCY NOSSCHIZOPHR ENIA NOS-UNSPECHY PERTENSION NOS 8 No Information [facility], [address], [place], [place], [address] , [place] tel: [phone] [facility] DENTAL EXAMINATION 8 No Information OFFICE CONSULT, 15 MIN, 3 GROVER COMPS: PROB FOCUS HX; PROB FOCUS EXAM; STRTFWD [facility], [address], [place], [place], [address] , [place] tel: [phone] [facility] COUNSELING NOS 8 No Information OFFICE OUTPT EST 10 MIN [facility], [address], [place], [place], [address] , [place] tel: [phone] [facility] ISSUE REPEAT PRESCRIPT 8 No Information OFFICE/OUTPA TIENT VISIT, EST [facility], [address], [place], [place], [address] , [place] tel: [phone] [facility] ALLERGIC RHINITIS NOSTOBACCO USE DISORDERHYPE RTENSION NOSDERMATOPH YTOSIS OF FOOT 7 No Information OFFICE CONSULT, 15 MIN, 3 GROVER COMPS: PROB FOCUS HX; PROB FOCUS EXAM; STRTFWD [facility], [address], [place], [place], [address] , [place] tel: [phone] [facility] COUNSELING NOS 7 No Information [facility], [address], [place], [place], [address] , [place] tel: [phone] [facility] DENTAL EXAMINATION 7 No Information OFFICE OUTPT EST 10 MIN [facility], [address], [place], [place], [address] , [place] tel: [phone] [facility] ACUTE URI NOSALLERGIC RHINITIS NOS 7 No Information OFFICE OUTPT EST 10 MIN [facility], [address], [place], [place], [address] , [place] tel: [phone] [facility]essandra [facility] ACUTE URI NOS 7 No Information [facility], [address], [place], [place], [address] , [place] tel: [phone] [facility] DENTAL EXAMINATION 7 No Information OFFICE CONSULT, 15 MIN, 3 GROVER COMPS: PROB FOCUS HX; PROB FOCUS EXAM; STRTFWD [facility], [address], [place], [place], [address] , [place] tel: [phone] [facility] COUNSELING NOS 7 No Information OFFICE/OUTPA TIENT VISIT, EST [facility], [address], [place], [place], [address] , [place] tel: [phone] [facility] DERMATITIS NOSDERMATOPH YTOSIS OF FOOTHYPERTEN ALEXI NOS 7 No Information OFFICE CONSULT, 15 MIN, 3 GROVER COMPS: PROB FOCUS HX; PROB FOCUS EXAM; STRTFWD [facility], [address], [place], [place], [address] , [place] tel: [phone] [facility] COUNSELING NOS 7 No Information [facility], [address], [place], [place], [address] , [place] tel: [phone] [facility] DENTAL EXAMINATION 7 No Information OFFICE/OUTPA TIENT VISIT, EST [facility], [address], [place], [place], [address] , [place] tel: [phone] [facility] HYPERTENSION NOSCHEST PAIN NECANEURYSM OF HEART NECDEPRESSIV E DISORDER NEC 0 7 No Information OFFICE/OUTPA TIENT VISIT, EST [facility], [address], [place], [place], [address] , [place] tel: [phone] [facility] ABDMNAL PAIN UNSPCF SITEHYPERTEN ALEXI NOSNONSPECIF SKIN ERUPT NEC Nov- 7 No Information OFFICE OUTPT EST 10 MIN [facility], [address], [place], [place], [address] , [place] tel: [phone] [facility] ISSUE REPEAT PRESCRIPTABD MNAL PAIN UNSPCF SITE 6 No Information OFFICE CONSULT, 15 MIN, 3 GROVER COMPS: PROB FOCUS HX; PROB FOCUS EXAM; STRTFWD [facility], [address], [place], [place], [address] , [place] tel: [phone] [facility] COUNSELING NOS 6 No Information OFFICE/OUTPA TIENT VISIT, EST [facility], [address], [place], [place], [address] , [place] tel: [phone] [facility] DEPRESSIVE DISORDER NECABDMNAL PAIN UNSPCF SITE 6 No Information OFFICE OUTPT EST 10 MIN [facility], [address], [place], [place], [address] , [place] tel: [phone] [facility] ISSUE REPEAT PRESCRIPTABD MNAL PAIN UNSPCF SITE 6 No Information OFFICE OUTPT EST 10 MIN [facility], [address], [place], [place], [address] , [place] tel: [phone] [facility] ISSUE REPEAT PRESCRIPT 6 No Information HOME VST EST PT LOW TO MOD SEVERITY [facility], [address], [place], [place], [address] , [place] tel: [phone] [facility] SCHIZOPHRENI FORM DIS NOS 6 No Information HOME VST EST PT LOW TO MOD SEVERITY [facility], [address], [place], [place], [address] , [place] tel: [phone] [facility] SCHIZOPHRENI FORM DIS NOS 6 No Information HOME VST EST PT LOW TO MOD SEVERITY [facility], [address], [place], [place], [address] , [place] tel: [phone] [facility] SCHIZOPHRENI A NOS-UNSPEC 6 No Information OFFICE/OUTPA TIENT VISIT, EST [facility], [address], [place], [place], [address] , [place] tel:[phone] [facility] DEPRESSIVE DISORDER NECHELICOBAC TER PYLORICHEST PAIN NEC 6 No Information OFFICE OUTPT EST 25 MIN [facility], [address], [place], [place], [address] , [place] tel: [phone] [facility] OPEN WOUND ARM MULT/NOS 6 No Information OFFICE OUTPT EST 10 MIN [facility], [address], [place], [place], [address] , [place] tel: [phone] [facility] VERNAL CONJUNCTIVIT IS 6 No Information OFFICE/OUTPA TIENT VISIT, EST [facility], [address], [place], [place], [address] , [place] tel: [phone] [facility] INSECT BITE FOREARMDEPRE SSIVE DISORDER NECABDMNAL PAIN UNSPCF SITE 6 No Information [facility], [address], [place], [place], [address] , [place] tel: [phone] [facility] DENTAL EXAMINATION 6 No Information OFFICE CONSULT, 15 MIN, 3 GROVER COMPS: PROB FOCUS HX; PROB FOCUS EXAM; STRTFWD [facility], [address], [place], [place], [address] , [place] tel: [phone] [facility] COUNSELING NOS 6 No Information HOME VST EST PT LOW TO MOD SEVERITY [facility], [address], [place], [place], [address] , [place] tel: [phone] [facility] HEADACHE 6 No Information OFFICE OUTPT NEW 30 MIN [facility], [address], [place], [place], [address] , [place] tel: [phone] [facility] ACUTE URI NOSJOINT PAIN-SHLDER 5-200 6 No Information Family History Family Member Type Diagnosis Age At Onset Mother Problem (finding) Maternal histo ry of diabetes mellitus Maternal grandmother Problem (finding) stroke Immunizations Vaccine Date Status Comments Flu (split) (3 yrs or older) administered Note: [facility]--[id number] ; Source: New Immunization Record Flu (split) (3 yrs or older) administered Note: [facility] [id number] VIS DATE 03/26/2010 ; Source: New Immunization Record [facility] administered Note: GIVEN 1ML IM [facility] [id number] VIS DATE 09/30/2008 ; Source: New Immunization Record Flu (split) (3 yrs or older) administered Note: [facility] [id number] ; Source: New Immunization Record INFLUENZA VIRUS VACCINE SPLI T VIRUS 3 YEARS + IM administered Source: New Immuniza tion Record HEPATITIS A AND HEPATITIS B VACCINE (HEPA-HEPB), ADULT DOSAGE, FOR INTRAMUSCULAR USE administered Source: Ne w Immunization Record HEPATITIS A AND HEPATITIS B VACCINE (HEPA-HEPB), ADULT DOSAGE, FOR INTRAMUSCULAR USE administered Source: Ne w Immunization Record INFLUENZA VIRUS VACCINE SPLI T VIRUS 3 YEARS + IM administered Source: New Immuniza tion Record Payers Payer name Insurance type Covered democrat ID Authoriza tion(s) No Information Social History Type Description Quantity Date Captured Comments Sex Male Smoking Status No Information Chief Complaint And Reason For Visit No Information Reason For Referral Reason For Referral No Information Plan Of Treatment Date Type Action Status Goal ALT. Due on due Goal AST. Due on due Goal BMP fasting. Due on 011 due Goal Influenza Vaccine. Due on due Goal Lipid Panel. Due on 011 due Goal PSA. Due on due Referral Referred To: [address], [phone] Ordered: Referral: [facility]. Dermatology. Follow-up and Treat. Appointment date/timeframe: 08/23/2009 ordered Future Order: Lab Order POC GLUC OSE ([id number]), Appointment on: , Sent on: Sent Future Order: Lab Order BASIC ME TABOLIC PANEL W/EGFR ([id number]), Appointment on: , Sent on: Sent History Of Present Illness Encounter Date Complaint History Of Prese nt Illness No Information Functional Status Date Functional Assessmen t No Information Instructions Date Instruction Additional Infor mation Continue current medication Continue current medication Follow up with psychiatry Assessments Type Assessment Date No Information Patient Care Teams Name Effective Dates (start - stop) Status Members No Information
--- OUTSIDE RECORDS SUMMARY | 2023-06-29 18:00 | XMS_ITS | Continuity of Care Document ---
Author Organization [facility] Address [address] [place] [address] Phone Care Team Providers Care Warp Hand Name Role Phone Management, Case Unavailable Unavailable [...] - Active Nasacort AQ 55 mcg Nasal [place] Aerosol inhale 2 spray by Intranasal route [...] Date Alcohol and/or drug services; case manag [facility] Voided Encounter Alcohol and/or drug services; case manag [facility] Alcohol and/or drug services; case manag [facility] Alcohol and/or drug services; case manag [facility] Alcohol and/or drug services; case manag [facility] Alcohol and/or drug services; case manag [facility] Alcohol and/or drug services; case [facility] Alcohol and/or drug services; case [facility] MENTAL HEALTH SERVICE PLAN DEVELOPMENT B Y NON-PHYSICIAN MENTAL HEALTH SERVICE PLAN DEVELOPMENT B Y NON-PHYSICIAN Alcohol and/or drug services; case manag [facility] MENTAL HEALTH SERVICE PLAN DEVELOPMENT B Y NON-PHYSICIAN Alcohol and/or drug services; case [facility] Alcohol and/or drug services; case [facility] MENTAL HEALTH SERVICE PLAN DEVELOPMENT B Y NON-PHYSICIAN Alcohol and/or drug services; case [facility] MENTAL HEALTH SERVICE PLAN DEVELOPMENT B Y NON-PHYSICIAN MENTAL HEALTH SERVICE PLAN DEVELOPMENT B Y NON-PHYSICIAN MENTAL HEALTH SERVICE PLAN DEVELOPMENT B Y NON-PHYSICIAN Alcohol and/or drug services; case manag [facility] Alcohol and/or drug services; case [facility] Alcohol and/or drug services; case [facility] Debridement, Full Mouth, For Comprehensi ve [...] Comprehensve oral evaluation Dental bitewings two films Topical fluor w/o prophy adult 08 Dental prophylaxis adult Oral hygiene instruction OFFICE/OUTPATIENT VISIT, EST HEP [...] COMPS: PROB FOCUS HX; PROB FOCUS EXAM; [facility] Periapical first film Limit oral eval problem focused 008 OFFICE OUTPT EST 10 MIN OFFICE/OUTPATIENT VISIT, EST OFFICE CONSULT, 15 MIN, 3 KE Y COMPS: PROB FOCUS HX; PROB FOCUS EXAM; [facility] [employer] one surface OFFICE OUTPT EST 10 MIN OFFICE OUTPT EST 10 MIN Topical fluor w/o prophy adult 07 Dental prophylaxis adult Comprehensve oral evaluation OFFICE CONSULT, 15 MIN, 3 KE Y COMPS: PROB FOCUS HX; PROB FOCUS EXAM; [facility] URNLS DIP STICK/TABLET RGNT AUTO W/O TRISHA THYROID STIMULATING HORMONE (TSH) COLLECTION OF VENOUS BLOOD BY VENIPUNCTU RE SYPHILIS TEST; QUALITATIVE (EG, VDRL, RP R, ART) CALCIFEDIOL (25-OH VITAMIN D-3) 007 OFFICE/OUTPATIENT VISIT, EST COMPRE METAB PANEL BLOOD COUNT; COMPLETE (CBC), AUTOMATED (HGB, HCT, RBC, WBC AND PLATELET COUNT) ANTIBODY; HIV-1 AND HIV-2, SINGLE ASSAY INFLUENZA VACCINE, AGE 3YRS+ OFFICE CONSULT, 15 MIN, 3 KE Y COMPS: PROB FOCUS HX; PROB FOCUS EXAM; [facility] Dental bitewings two films Debridement, Full Mouth Oral hygiene instruction Limit oral eval problem focused OFFICE/OUTPATIENT VISIT, EST OFFICE/OUTPATIENT VISIT, EST COLLECTION [...] OF VENOUS BLOOD BY VENIPUNCTU RE LIPASE THYROID STIMULATING HORMONE (TSH) CALCIFEDIOL (25-OH VITAMIN D-3) 006 AMYLASE COMPRE METAB PANEL BLOOD COUNT; COMPLETE (CBC), AUTOMATED (HGB, HCT, RBC, WBC AND PLATELET COUNT) OFFICE/OUTPATIENT VISIT, EST ANTIBODY; HELICOBACTER PYLORI 6 [...] Encounter [facility], [address], [place], [place], [address] , tel: [phone] Longterm No Information 3 Management Case. [address], [place], [place], [address], . tel:[phone] Consulting Provider: Case Management, [address], [place], [place], [address] [place] [address]. tel:[phone] [facility], [address], [place], [place], [address] , tel: [phone] Longterm No Information 3 Management Case. [address], [place], [place], [address], . tel:[phone] Consulting Provider: Case Management, [address], [place], [address] [place] [address]. tel:[phone] [facility], [address], [place], [place], [address] , tel: [phone] Longterm No Information 3 Management Case. [address], [place], [place], [address], . tel:[phone] [facility], [address], [place], [place], [address] , tel: [phone] Longterm No Information 3 Management Case. [address], [place], [place], [address], . tel:[phone] [facility], [address], [place], [place], [address] , [place] tel: [phone] Longterm No Information 3 Management Case. [address], [place], [place], [address], . tel:[phone] [facility], [address], [place], [place], [address] , tel: [phone] Longterm No Information 3 Management Case. [address], [place], [address], [place]. tel:[phone] [facility], [address], [place], [place], [address] , [place] tel:[phone] Longterm No Information 3 Management Case. [address], [place], [address], [place]. tel:[phone] [facility], [address], [place], [place], [address] , [place] tel:[phone] Longterm No Information 3 Management Case. [address], [place], [place], [address], [place]. tel:[phone] [facility], [address], [place], [place], [address] , [place] tel:[phone] Longterm No Information 3 Management Case. [address], [place], [address], [place]. tel:[phone] [facility], [address], [place], [place], [address] , [place] tel:[phone] Longterm No Information 3 Management Case. [address], [place], [place], [address], [place]. tel:[phone] [facility], [address], [place], [place], [address] , [place] tel:[phone] Longterm No Information 3 Management Case. [address], [place], [place], [address], [place]. tel:[phone] [facility], [address], [place], [place], [address] , [place] tel:[phone] Longterm No Information 3 Management Case. [address], [place], [address], [place]. tel:[phone] Consulting Provider: Case Management, [address], [place], [address]. tel:[phone] [facility], [address], [place], [place], [address] , [place] tel:[phone] Longterm No Information 0 3 Management Case. [address], [place], [address], [place]. tel:[phone] Consulting Provider: Case Management, [address], [place], [address]. tel:[phone] [facility], [address], [place], [place], [address] , [place] tel:[phone] Longterm No Information 0 3 Management Case. [address], [place], [place], [address], [place]. tel:[phone] [facility], [address], [place], [place], [address] , tel: [phone] Longterm No Information 3 Management Case. [address], [place], [place], [address], [place]. tel:[phone] [facility], [address], [place], [place], [address] , [place] tel: [phone] Longterm No Information 2 Management Case. [address], [place], [place], [address], [place]. tel:[phone] Consulting Provider: Case Management, [address], [place], [address]. tel:[phone] [facility], [address], [place], [place], [address] , [place] tel: [phone] Longterm No Information 6 2 Management Case. [address], [place], [place], [address], [place]. tel:[phone] Consulting Provider: Case Management, [address], [place], [address]. tel:[phone] [facility], [address], [place], [place], [address] , tel: [phone] Longterm No Information 0 3-202 2 Management Case. [address], [place], [place], [address], [place]. tel:[phone] Consulting Provider: Case Management, [address], [place], [address]. tel:[phone] [facility], [address], [place], [place], [address] , [place] tel:[phone] Longterm No Information 2 Management Case. [address], [place], [place], [address], [place]. tel:[phone] Consulting Provider: Case Management, [address], [place], [address]. tel:[phone] [facility], [address], [place], [place], [address] , tel: [phone] Longterm No Information 2 Management Case. [address], [place], [place], [address], . tel:[phone] Consulting Provider: Case Management, [address], [place], [address]. tel:[phone] [facility], [address], [place], [place], [address] , [place] tel: [phone] Longterm No Information 2 Management Case. [address], [place], [place], [address], [place]. tel:[phone] Consulting Provider: Case Management, [address], [place], [address]. tel:[phone] [facility], [address], [place], [place], [address] , [place] tel:[phone] Longterm No Information 2 Management Case. [address], [place], [place], [address], [place]. tel:[phone] Consulting Provider: Case Management, [address], [place], [address]. tel:[phone] [facility], [address], [place], [place], [address] , [place] tel:[phone] Longterm No Information 0 2 Management Case. [address], [place], [place], [address], [place]. tel:[phone] Consulting Provider: Case Management, [address], [place], [address]. tel:[phone] [facility], [address], [place], [place], [address] , [place] tel: [phone] [facility] Chronic periodontiti s, generalized, slightEncoun ter for dental exam and cleaning w abnormal findings 2 Piper Conchita. [address], [place], [place], [address]. tel:[phone] [facility], [address], [place], [place], [address] , [place] tel: [phone] [facility] Encounter for dental exam and cleaning w abnormal findings 1 No Information [facility], [address], [place], [place], [address] , [place] tel: [phone] [facility] Encounter for dental exam and cleaning w abnormal findings 1 No Information [facility], [address], [place], [place], [address] , [place] tel: [phone] Longterm No Information 1 Management Case. [address], [place], [place], [address], . [phone] Consulting Provider: Case Management, [address], [place], [address]. tel:[phone] [facility], [address], [place], [place], [address] , [place] tel: [phone] [facility] Encounter for dental exam and cleaning w abnormal findings 0 0 No Information [facility], [address], [place], [place], [address] , [place] tel: [phone] Longterm No Information 0 201 9 Management Case. [address], [place], [place], [address], [place]. tel:[phone] Referring Provider: Case Management, [address], [place], [address]. tel:[phone] [facility], [address], [place], [place], [address] , tel: [phone] Longterm No Information 9 Management Case. [address], [place], [place], [address], [place]. tel:[phone] Referring Provider: Case Management, [address], [place], [address]. tel:[phone] [facility], [address], [place], [place], [address] , [place] tel: [phone] Longterm No Information 9 Management Case. [address], [place], [place], [address], [place]. tel:[phone] Referring Provider: Case Management, [address], [place], [address]. tel:[phone] [facility], [address], [place], [place], [address] , [place] tel: [phone] Longterm No Information 9 Management Case. [address], [place], [place], [address], [place]. tel:[phone] Referring Provider: Case Management, [address], [place], [address]. tel:[phone] [facility], [address], [place], [place], [address] , [place] tel: [phone] Longterm No Information 9 Management Case. [address], [place], [place], [address], [place]. tel:[phone] Referring Provider: Case Management, [address], [place], [address]. tel:[phone] [facility], [address], [place], [place], [address] , [place] tel: [phone] Longterm No Information 9 Management Case. [address], [place], [place], [address], [place]. tel:[phone] Referring Provider: Case Management, [address], [place], [address]. tel:[phone] [facility], [address], [place], [place], [address] , [place] tel: [phone] Longterm No Information 9 Management Case. [address], [place], [place], [address], [place]. tel:[phone] Referring Provider: Case Management, [address], [place], [address]. tel:[phone] [facility], [address], [place], [place], [address] , tel: [phone] Longterm No Information 9 Management Case. [address], [place], [place], [address], [place]. tel:[phone] Referring Provider: Case Management, [address], [place], [address]. tel:[phone] [facility], [address], [place], [place], [address] , tel: [phone] Longterm No Information 9 Management Case. [address], [place], [place], [address], [place]. tel:[phone] Referring Provider: Case Management, [address], [place], [address]. tel:[phone] [facility], [address], [place], [place], [address] , [place] tel: [phone] Longterm No Information 9-201 8 Management Case. [address], [place], [place], [address], [place]. tel:[phone] Referring Provider: Case Management, [address], [place], [address]. tel:[phone] OFFICE/OUTPA TIENT VISIT, EST [facility], [address], [place], [place], [address] , [place] tel: [phone] [facility] headache (chief complaint)lab test (chief complaint) Headache 2 No Information OFFICE/OUTPA TIENT VISIT, EST [facility], [address], [place], [place], [address] , [place] tel: [phone] [facility] headache (chief complaint)cou gh and congestion (chief complaint)sor e throat (chief complaint) Acute nasopharyngi tis (common cold)Unspeci fied essential hypertension 2 No Information [facility], [address], [place], [place], [address] , [place] tel: [phone] Alessandra [facility] No Information 1 No Information OFFICE/OUTPA TIENT VISIT, EST [facility], [address], [place], [place], [address] , [place] tel: [phone] [facility] flu vaccine (chief complaint) No Information 1 No Information [facility], [address], [place], [place], [address] , [place] tel: [phone] Al[facility] No Information 1 No Information [facility], [address], [place], [place], [address] , [place] tel: [phone] [facility] No Information 1 No Information [facility], [address], [place], [place], [address] , [place] tel: [phone] [facility] No Information 1 No Information [facility], [address], [place], [place], [address] , [place] tel: [phone] [facility] No Information 1 No Information OFFICE/OUTPA TIENT VISIT, EST [facility], [address], [place], [place], [address] , [place] tel: [phone] [facility] hypertension (chief complaint) Benign essential hypertension Contact dermatitis and other eczema, unspecified cause 1 No Information [facility], [address], [place], [place], [address] , [place] tel: [phone] [facility] No Information 1 No Information [facility], [address], [place], [place], [address] , [place] tel: [phone] [facility] Microscopic hematuria 1 No Information OFFICE OUTPT EST 25 MIN [facility], [address], [place], [place], [address] , [place] tel: [phone] [facility] smoking cessation (chief complaint)hyp ertension (chief complaint)aci d reflux (chief complaint) Unspecified essential hypertension Microscopic hematuriaEso phageal refluxUnspec ified type schizophreni a, unspecified stateEsophag eal reflux 1 No Information OFFICE/OUTPA TIENT VISIT, EST [facility], [address], [place], [place], [address] , [place] tel: [phone] [facility] medication refill (chief complaint)hyp ertension (chief complaint) Microscopic hematuriaUns pecified essential hypertension 0 No Information Referring Provider: Michael Hidalgo, [address], [place], [address]. tel:[phone] [facility], [address], [place], [place], [address] , [place] tel: [phone] [facility] Microscopic hematuria 0 No Information OFFICE OUTPT EST 25 MIN [facility], [address], [place], [place], [address] , [place] tel: [phone] [facility] hypertension (chief complaint)lon t results (chief complaint) Unspecified essential hypertension Microscopic hematuriaNon dependent tobacco use disorderUnsp ecified type schizophreni a, unspecified stateConjunc tivitis, unspecified 0 No Information [facility], [address], [place], [place], [address] , [place] tel: [phone] [facility] Microscopic hematuria 0 No Information OFFICE OUTPT EST 25 MIN [facility], [address], [place], [place], [address] , [place] tel: [phone] [facility] cough (chief complaint)smo sergei cessation rx (chief complaint) Nondependent tobacco use disorderUnsp ecified essential hypertension Unspecified type schizophreni a, unspecified stateAllergi c rhinitis, cause unspecified 0 No Information [facility], [address], [place], [place], [address] , [place] tel: [phone] [facility] No Information 0 No Information OFFICE OUTPT EST 25 MIN [facility], [address], [place], [place], [address] , [place] tel: [phone] [facility] hypertension (chief complaint)smo sergei cessation (chief complaint)col d symptoms (chief complaint) Unspecified essential hypertension Acute upper respiratory infections of unspecified siteUnspecif ied type schizophreni a, unspecified stateNondepe ndent tobacco use disorderDerm atophytosis of foot 0 No Information OFFICE/OUTPA TIENT VISIT, EST [facility], [address], [place], [place], [address] , [place] tel: [phone] [facility] flu shot (chief complaint)res ults (chief complaint) Need for prophylactic vaccination and inoculation, influenza 9 No Information OFFICE OUTPT EST 25 MIN [facility], [address], [place], [place], [address] , [place] tel: [phone] [facility] followup (chief complaint) Acute upper respiratory infections of unspecified siteUnspecif ied essential hypertension Acute upper respiratory infections of unspecified siteUnspecif ied type schizophreni a, unspecified stateAneurys m of heart (wall)Aneury sm of heart (wall)Seborr heic dermatitis 9 No Information [facility], [address], [place], [place], [address] , [place] tel: [phone] [facility] No Information 9 No Information [facility], [address], [place], [place], [address] , [place] tel: [phone] [facility] lab test (chief complaint) Laboratory examination 9 No Information OFFICE/OUTPA TIENT VISIT, EST [facility], [address], [place], [place], [address] , [place] tel: [phone] [facility] FOLLOWUP (chief complaint)hyp ertension (chief complaint)dep ression (chief complaint) Unspecified essential hypertension Depressive disorder, not elsewhere classifiedOt her specified drug dependence, unspecified useDepressiv e disorder, not elsewhere classified 9 No Information [facility], [address], [place], [place], [address] , [place] tel: [phone] [facility] Immun[facility] Location No Information 9 No Information OFFICE OUTPT EST 10 MIN [facility], [address], [place], [place], [address] , [place] tel: [phone] [facility] Issue of repeat prescription s 9 No Information OFFICE O/P EST 5 MIN [facility], [address], [place], [place], [address] , [place] tel: [phone] [facility] FOLLOW-UP EXAM NOS 8 No Information OFFICE O/P EST 5 MIN [facility], [address], [place], [place], [address] , [place] tel: [phone] [facility] ISSUE OF MED CERTIF NEC 8 No Information OFFICE O/P EST 5 MIN [facility], [address], [place], [place], [address] , [place] tel: [phone] [facility] SCREENING-PU LMONARY TB 8 No Information OFFICE/OUTPA TIENT VISIT, EST [facility], [address], [place], [place], [address] , [place] tel: [phone] [facility] HYPERTENSION NOSROUTINE MEDICAL EXAM Nov-0 6-200 8 No Information OFFICE/OUTPA TIENT VISIT, EST [facility], [address], [place], [place], [address] , [place] tel: [phone] [facility] HYPERTENSION NOSACUTE PHARYNGITIS Oct-2 7-200 8 No Information OFFICE OUTPT EST 10 MIN [facility], [address], [place], [place], [address] , [place] tel: [phone] [facility] COUGH Sep-2 2-200 8 No Information OFFICE CONSULT, 15 MIN, 3 GROVER COMPS: PROB FOCUS HX; PROB FOCUS EXAM; STRTFWD [facility], [address], [place], [place], [address] , [place] tel: [phone] [facility] COUNSELING NOS Sep-1 6-200 8 No Information OFFICE/OUTPA TIENT VISIT, EST [facility], [address], [place], [place], [address] , [place] tel: [phone] [facility] ABDMNAL PAIN UNSPCF SITEABNORM ELECTROCARDI OGRAMHEADACH E Sep-1 5-200 8 No Information OFFICE/OUTPA TIENT VISIT, EST [facility], [address], [place], [place], [address] , [place] tel: [phone] [facility] ACUTE PHARYNGITIS Sep-1 1-200 8 No Information [facility], [address], [place], [place], [address] , [place] tel: [phone] [facility] DENTAL EXAMINATION Sep-0 9-200 8 No Information OFFICE/OUTPA TIENT VISIT, EST [facility], [address], [place], [place], [address] , [place] tel: [phone] [facility] VITAMIN D DEFICIENCY NOSHYPERTENS ION NOS Sep-0 8-200 8 No Information OFFICE OUTPT EST 10 MIN [facility], [address], [place], [place], [address] , [place] tel: [phone] [facility] ISSUE OF MED CERTIF NEC Ebenezer-2 3-200 8 No Information [facility], [address], [place], [place], [address] , [place] tel: [phone] [facility] DENTAL EXAMINATION 8 No Information OFFICE/OUTPA TIENT VISIT, EST [facility], [address], [place], [place], [address] , [place] tel: [phone] [facility] HYPERTENSION NOSNEED PRPHYL VC VRL HEPAT 8 No Information HOME VST EST PT LOW TO MOD SEVERITY [facility], [address], [place], [place], [address] , [place] tel: [phone] Longterm OTHER SPECFD COUNSELING 8 No Information [facility], [address], [place], [place], [address] , [place] tel: [phone] [facility] LABORATORY EXAMINATION 8 No Information HOME VST EST PT LOW TO MOD SEVERITY [facility], [address], [place], [place], [address] , [place] tel: [phone] Longterm NUTRITION DEFICIENCY NOSOTHER SPECFD COUNSELING 8 No Information [facility], [address], [place], [place], [address] , [place] tel: [phone] [facility] LABORATORY EXAMINATION 8 No Information OFFICE/OUTPA TIENT VISIT, EST [facility], [address], [place], [place], [address] , [place] tel: [phone] [facility] DRUG DEPEND NEC-UNSPECHY PERTENSION NOSDERMATOPH YTOSIS OF FOOT 8 No Information HOME VST NEW PT HI SEVERITY [facility], [address], [place], [place], [address] , [place] tel: [phone] Longterm NUTRITION DEFICIENCY NOSOTHER SPECFD COUNSELING 8 No Information OFFICE/OUTPA TIENT VISIT, EST [facility], [address], [place], [place], [address] , [place] tel: [phone] [facility] VITAMIN D DEFICIENCY NOSSCHIZOPHR ENIA NOS-UNSPECHY PERTENSION NOS 8 No Information [facility], [address], [place], [place], [address] , [place] tel: [phone] [facility] DENTAL EXAMINATION 8 No Information OFFICE CONSULT, 15 MIN, 3 GROVER COMPS: PROB FOCUS HX; PROB FOCUS EXAM; STRTFWD [facility], [address], [place], [place], [address] , [place] tel: [phone] [facility] COUNSELING NOS 8 No Information OFFICE OUTPT EST 10 MIN [facility], [address], [place], [place], [address] , [place] tel: [phone] [facility] ISSUE REPEAT PRESCRIPT 8 No Information OFFICE/OUTPA TIENT VISIT, EST [facility], [address], [place], [place], [address] , [place] tel: [phone] [facility] ALLERGIC RHINITIS NOSTOBACCO USE DISORDERHYPE RTENSION NOSDERMATOPH YTOSIS OF FOOT 7 No Information OFFICE CONSULT, 15 MIN, 3 GROVER COMPS: PROB FOCUS HX; PROB FOCUS EXAM; STRTFWD [facility], [address], [place], [place], [address] , [place] tel: [phone] [facility] COUNSELING NOS 7 No Information [facility], [address], [place], [place], [address] , [place] tel: [phone] [facility] DENTAL EXAMINATION 7 No Information OFFICE OUTPT EST 10 MIN [facility], [address], [place], [place], [address] , [place] tel: [phone] [facility] ACUTE URI NOSALLERGIC RHINITIS NOS 7 No Information OFFICE OUTPT EST 10 MIN [facility], [address], [place], [place], [address] , [place] tel: [phone] [facility] ACUTE URI NOS 7 No Information [facility], [address], [place], [place], [address] , [place] tel: [phone] [facility] [facility] [place] DENTAL EXAMINATION 7 No Information OFFICE CONSULT, 15 MIN, 3 GROVER COMPS: PROB FOCUS HX; PROB FOCUS EXAM; [facility]TF[facility], [address], [place], [place], [address] , [place] tel: [phone] [facility] [place] COUNSELING NOS 7 No Information OFFICE/OUTPA TIENT VISIT, EST [facility], [address], [place], [place], [address] , [place] tel: [phone] [facility] [place] DERMATITIS NOSDERMATOPH YTOSIS OF FOOTHYPERTEN ALEXI NOS 7 No Information OFFICE CONSULT, 15 MIN, 3 GROVER COMPS: PROB FOCUS HX; PROB FOCUS EXAM; [facility], [address], [place], [place], [address] , [place] tel: [phone] [facility] [place] COUNSELING NOS 7 No Information [facility], [address], [place], [place], [address] , [place] tel: [phone] [facility] [place] D[facility] EXAM[facility]ATION 7 No Information OFFICE/OUTPA TIENT VISIT, EST [facility], [address], [place], [place], [id number] , [place] tel: [phone] [facility] HYPERTENSION NOSCHEST PAIN NECANEURYSM OF HEART NECDEPRESSIV E DISORDER NEC 0 7 No Information OFFICE/OUTPA TIENT VISIT, EST [facility], [address], [place], [place], [address] , [place] tel: [phone] [facility] ABDMNAL PAIN UNSPCF SITEHYPERTEN ALEXI NOSNONSPECIF SKIN ERUPT NEC Nov- 7 No Information OFFICE OUTPT EST 10 MIN [facility], [address], [place], [place], [address] , [place] tel: [phone] [facility] REPEAT PRESCRIPTABD MNAL PAIN UNSPCF SITE 6 No Information OFFICE CONSULT, 15 MIN, 3 GROVER COMPS: PROB FOCUS HX; PROB FOCUS EXAM; [facility]TF[facility], [address], [place], [place], [address] , [place] tel: [phone] [facility] [place] COUNSELING NOS 6 No Information OFFICE/OUTPA TIENT VISIT, EST [facility], [address], [place], [place], [address] , [place] tel: [phone] [facility] DEPRESSIVE DISORDER NECABDMNAL PAIN UNSPCF SITE 6 No Information OFFICE OUTPT EST 10 MIN [facility], [address], [place], [place], [address] , [place] tel: [phone] [facility] ISS[facility] REPEAT PRESCRIPTABD MNAL PAIN UNSPCF SITE 6 No Information OFFICE OUTPT EST 10 MIN [facility], [address], [place], [place], [address] , [place] tel: [phone] [facility] REPEAT PRESCRIPT 6 No Information HOME VST EST PT LOW TO MOD SEVERITY [facility], [address], [place], [place], [address] , [place] tel: [phone] [facility] SCHIZOPHRENI FORM DIS NOS 6 No Information HOME VST EST PT LOW TO MOD SEVERITY [facility], [address], [place], [place], [address] , [place] tel: [phone] Longterm SCHIZOPHRENI FORM DIS NOS 6 No Information HOME VST EST PT LOW TO MOD SEVERITY [facility], [address], [place], [place], [address] , [place] tel: [phone] Longterm SCHIZOPHRENI A NOS-UNSPEC 6 No Information OFFICE/OUTPA TIENT VISIT, EST [facility], [address], [place], [place], [address] , [place] tel:[phone] [facility] DEPRESSIVE DISORDER NECHELICOBAC TER PYLORICHEST PAIN NEC 6 No Information OFFICE OUTPT EST 25 MIN [facility], [address], [place], [place], [address] , [place] tel: [phone] [facility] OPEN WOUND ARM MULT/NOS 6 No Information OFFICE OUTPT EST 10 MIN [facility], [address], [place], [place], [address] , [place] tel: [phone] [facility] VERNAL CONJUNCTIVIT IS 6 No Information OFFICE/OUTPA TIENT VISIT, EST [facility], [address], [place], [place], [address] , [place] tel: [phone] [facility] INSECT BITE FOREARMDEPRE SSIVE DISORDER NECABDMNAL PAIN UNSPCF SITE 6 No Information [facility], [address], [place], [place], [address] , [place] tel: [phone] [facility] [place] D[facility] EXAMINATION 6 No Information OFFICE CONSULT, 15 MIN, 3 GROVER COMPS: PROB FOCUS HX; PROB FOCUS EXAM; [facility], [address], [place], [place], [address] , [place] tel: [phone] [facility] [place] COUNSELING NOS 6 No Information HOME VST EST PT LOW TO MOD SEVERITY [facility], [address], [place], [place], [address] , [place] tel: [phone] Longterm HEADACHE 6 No Information OFFICE OUTPT NEW 30 MIN [facility], [address], [place], [place], [address] , [place] tel: [phone] [facility] ACUTE URI NOSJOINT PAIN-SHLDER 5-200 6 No Information Family History Family Member Type Diagnosis Age At Onset Mother Problem (finding) Maternal histo ry of diabetes mellitus Maternal grandmother Problem (finding) stroke Immunizations Vaccine Date Status Comments Flu (split) (3 yrs or older) administered Note: [facility]--73152-052-06 ; Source: New Immunization Record Flu (split) (3 yrs or older) administered Note: [facility] [id number] VIS DATE 03/26/2010 ; Source: New Immunization Record [facility] administered Note: GIVEN 1ML IM [facility] [id number] VIS DATE 09/30/2008 ; Source: New Immunization Record Flu (split) (3 yrs or older) administered Note: [facility] 41529-852-45 ; Source: New Immunization Record INFLUENZA VIRUS [...] Record Payers Payer name Insurance type Covered republican ID Authoriza tion(s) No Information Social History Type Description Quantity Date Captured Comments Sex Male Smoking Status No Information Chief Complaint And Reason For Visit No Information Reason For Referral Reason For Referral No Information Plan Of Treatment Date Type Action Status Goal PSA. Due on due Goal Influenza Vaccine. Due on due Goal BMP fasting. Due on 011 due Goal AST. Due on due Goal ALT. Due on due Goal Lipid Panel. Due on 011 due Referral Referred To: [address], [phone] Ordered: Referral: [facility]. Dermatology. Follow-up and Treat. Appointment date/timeframe: 08/23/2009 ordered Future Order: Lab Order POC GLUC OSE ([id number]), Appointment on: , Sent on: Sent Future Order: Lab Order BASIC ME TABOLIC PANEL W/EGFR ([id number]), Appointment on: , Sent on: Sent History Of Present Illness Encounter Date Complaint History Of Prese nt Illness No Information Functional Status Date Functional Assessmen t No Information Instructions Date Instruction Additional Infor mation Follow up with psychiatry Continue current medication Continue current medication Assessments Type Assessment Date No Information Patient Care Teams Name Effective Dates (start - stop) Status Members No Information
--- OUTSIDE RECORDS SUMMARY | 2023-06-29 18:00 | XMS_ITS | Continuity of Care Document ---
Author Organization [facility] Address [address] [place] [address] Phone Care Team Providers Care Conservation Coordinator Name Role Phone Management, Case Unavailable Unavailable [...] - Active Nasacort AQ 55 mcg Nasal [place] Aerosol inhale 2 spray by Intranasal route [...] Date Alcohol and/or drug services; [facility] Void[facility] Encounter Alcohol and/or drug services; [facility] Alcohol and/or drug services; case [facility] Alcohol and/or drug services; case [facility] Alcohol and/or drug services; case manag [facility] Alcohol and/or drug services; case manag [facility] Alcohol and/or drug services; case [facility] Alcohol and/or drug services; case [facility] MENTAL HEALTH SERVICE PLAN DEVELOPMENT B Y NON-PHYSICIAN MENTAL HEALTH SERVICE PLAN DEVELOPMENT B Y NON-PHYSICIAN Alcohol and/or drug services; case [facility] MENTAL HEALTH SERVICE PLAN DEVELOPMENT B [...] NON-PHYSICIAN Alcohol and/or drug services; case [facility] Alcohol and/or drug services; case [facility] [...] PROB FOCUS HX; PROB FOCUS EXAM; [facility] Periapical first film Limit oral eval problem focused 008 OFFICE OUTPT EST 10 MIN OFFICE/OUTPATIENT VISIT, EST OFFICE CONSULT, 15 MIN, 3 KE Y COMPS: PROB FOCUS HX; PROB FOCUS EXAM; [facility] [place] OFFICE OUTPT EST 10 MIN OFFICE OUTPT EST 10 MIN Topical fluor w/o prophy adult 07 Dental prophylaxis adult Comprehensve oral evaluation OFFICE CONSULT, 15 MIN, 3 KE Y COMPS: PROB FOCUS HX; PROB FOCUS EXAM; [facility] URNLS DIP STICK/TABLET RGNT AUTO [...] Encounter [facility], [address], [place], [place], [address] , tel: [phone] [facility] No Information 3 Management Case. [address], [place], [place], [address], . tel:[phone] Consulting Provider: Case Management, [address], [place], [address] [place] [address]. tel:[phone] [facility], [address], [place], [place], [address] , tel: [phone] [facility] No Information 3 Management Case. [address], [place], [place], [address], . tel:[phone] Consulting Provider: Case Management, [address], [place], [address] [place] [address]. tel:[phone] [facility], [address], [place], [place], [address] , tel: [phone] [facility] No Information 3 Management Case. [address], [place], [place], [address], . tel:[phone] [facility], [address], [place], [place], [address] , tel: [phone] [facility] No Information 3 Management Case. [address], [place], [place], [address], . tel:[phone] [facility], [address], [place], [place], [address] , [place] tel: [phone] [facility] No Information 3 Management Case. [address], [place], [place], [address], . tel:[phone] [facility], [address], [place], [place], [address] , tel: [phone] [facility] No Information 3 Management Case. [address], [place], [address], [place]. tel:[phone] [facility], [address], [place], [place], [address] , [place] tel:[phone] [facility] No Information 3 Management Case. [address], [place], [address], [place]. tel:[phone] [facility], [address], [place], [place], [address] , [place] tel:[phone] [facility] No Information 3 Management Case. [address], [place], [place], [address], [place]. tel:[phone] [facility], [address], [place], [place], [address] , [place] tel:[phone] [facility] No Information 3 Management Case. [address], [place], [place], [address], [place]. tel:[phone] [facility], [address], [place], [place], [address] , [place] tel:[phone] [facility] No Information 3 Management Case. [address], [place], [place], [address], [place]. tel:[phone] [facility], [address], [place], [address] , [place] tel:[phone] [facility] No Information 3 Management Case. [address], [place], [address], [place]. tel:[phone] [facility], [address], [place], [place], [address] , [place] tel:[phone] [facility] No Information 3 Management Case. [address], [place], [place], [address], [place]. tel:[phone] Consulting Provider: Case Management, [address], [place], [address]. tel:[phone] [facility], [address], [place], [place], [address] , [place] tel:[phone] [facility] No Information 0 3 Management Case. [address], [place], [address], [place]. tel:[phone] Consulting Provider: Case Management, [address], [place], [address]. tel:[phone] [facility], [address], [place], [place], [address] , [place] tel:[phone] [facility] No Information 0 3 Management Case. [address], [place], [place], [address], [place]. tel:[phone] [facility], [address], [place], [place], [address] , tel: [phone] [facility] No Information 3 Management Case. [address], [place], [place], [address], [place]. tel:[phone] [facility], [address], [place], [place], [address] , [place] tel: [phone] [facility] No Information 2 Management Case. [address], [place], [place], [address], [place]. tel:[phone] Consulting Provider: Case Management, [address], [place], [address]. tel:[phone] [facility], [address], [place], [place], [address] , [place] tel: [phone] [facility] No Information 6 2 Management Case. [address], [place], [place], [address], [place]. tel:[phone] Consulting Provider: Case Management, [address], [place], [address]. tel:[phone] [facility], [address], [place], [place], [address] , tel: [phone] [facility] No Information 0 3-202 2 Management Case. [address], [place], [address], [place]. tel:[phone] Consulting Provider: Case Management, [address], [place], [address]. tel:[phone] [facility], [address], [place], [place], [address] , [place] tel:[phone] [facility] No Information 2 Management Case. [address], [place], [place], [address], [place]. tel:[phone] Consulting Provider: Case Management, [address], [place], [address]. tel:[phone] [facility], [address], [place], [place], [address] , tel: [phone] [facility] No Information 2 Management Case. [address], [place], [place], [address], . tel:[phone] Consulting Provider: Case Management, [address], [place], [address]. tel:[phone] [facility], [address], [place], [place], [address] , [place] tel: [phone] [facility] No Information 2 Management Case. [address], [place], [place], [address], [place]. tel:[phone] Consulting Provider: Case Management, [address], [place], [address]. tel:[phone] [facility], [address], [place], [place], [address] , [place] tel:[phone] [facility] No Information 2 Management Case. [address], [place], [address], [place]. tel:[phone] Consulting Provider: Case Management, [address], [place], [address]. tel:[phone] [facility], [address], [place], [place], [address] , [place] tel:[phone] [facility] No Information 0 2 Management Case. [address], [place], [address], [place]. tel:[phone] Consulting Provider: Case Management, [address], [place], [address]. tel:[phone] [facility], [address], [place], [place], [address] , [place] tel: [phone] [facility] [place] Chronic periodontiti s, generalized, slightEncoun ter for dental exam and cleaning w abnormal findings 2 Piper Conchita. [address], [place], [place], [address]. tel:[phone] [facility], [address], [place], [place], [address] , [place] tel: [phone] [facility] [place] Encounter for dental exam and cleaning w abnormal findings 1 No Information [facility], [address], [place], [place], [address] , [place] tel: [phone] [facility] [place] Encounter for dental exam and cleaning w abnormal findings 1 No Information [facility], [address], [place], [place], [address] , [place] tel: [phone] [facility] No Information 1 Management Case. [address], [place], [place], [address], . [phone] Consulting Provider: Case Management, [address], [place], [address]. tel:[phone] [facility], [address], [place], [place], [address] , [place] tel: [phone] [facility] [place] Encounter for dental exam and cleaning w abnormal findings 0 0 No Information [facility], [address], [place], [place], [address] , [place] tel: [phone] [facility] No Information 0 201 9 Management Case. [address], [place], [place], [address], [place]. tel:[phone] Referring Provider: Case Management, [address], [place], [address]. tel:[phone] [facility], [address], [place], [place], [address] , tel: [phone] [facility] No Information 9 Management Case. [address], [place], [place], [address], [place]. tel:[phone] Referring Provider: Case Management, [address], [place], [address]. tel:[phone] [facility], [address], [place], [place], [address] , [place] tel: [phone] [facility] No Information 9 Management Case. [address], [place], [place], [address], [place]. tel:[phone] Referring Provider: Case Management, [address], [place], [address]. tel:[phone] [facility], [address], [place], [place], [address] , [place] tel: [phone] [facility] No Information 9 Management Case. [address], [place], [place], [address], [place]. tel:[phone] Referring Provider: Case Management, [address], [place], [address]. tel:[phone] [facility], [address], [place], [place], [address] , [place] tel: [phone] [facility] No Information 9 Management Case. [address], [place], [place], [address], [place]. tel:[phone] Referring Provider: Case Management, [address], [place], [address]. tel:[phone] [facility], [address], [place], [place], [address] , [place] tel: [phone] [facility] No Information 9 Management Case. [address], [place], [place], [address], [place]. tel:[phone] Referring Provider: Case Management, [address], [place], [address]. tel:[phone] [facility], [address], [place], [place], [address] , [place] tel: [phone] [facility] No Information 9 Management Case. [address], [place], [place], [address], [place]. tel:[phone] Referring Provider: Case Management, [address], [place], [address]. tel:[phone] [facility], [address], [place], [place], [address] , tel: [phone] [facility] No Information 9 Management Case. [address], [place], [place], [address], [place]. tel:[phone] Referring Provider: Case Management, [address], [place], [address]. tel:[phone] [facility], [address], [place], [place], [address] , tel: [phone] [facility] No Information 9 Management Case. [address], [place], [place], [address], [place]. tel:[phone] Referring Provider: Case Management, [address], [place], [address]. tel:[phone] [facility], [address], [place], [place], [address] , [place] tel: [phone] [facility] No Information 9-201 8 Management Case. [address], [place], [address], [place]. tel:[phone] Referring Provider: Case Management, [address], [place], [address]. tel:[phone] OFFICE/OUTPA TIENT VISIT, EST [facility], [address], [place], [place], [address] , [place] tel: [phone] [facility] headache (chief complaint)lab test (chief complaint) Headache 2 No Information OFFICE/OUTPA TIENT VISIT, EST [facility], [address], [place], [place], [address] , [place] tel: [phone] [facility] headache (chief complaint)cou gh and congestion (chief complaint)sor e throat (chief complaint) Acute nasopharyngi tis (common cold)Unspeci fied essential hypertension 2 No Information [facility], [address], [place], [place], [address] , [place] tel: [phone] [facility] No Information 1 No Information OFFICE/OUTPA TIENT VISIT, EST [facility], [address], [place], [place], [address] , [place] tel: [phone] [facility] flu vaccine (chief complaint) No Information 1 No Information [facility], [address], [place], [place], [address] , [place] tel: [phone] [facility] No Information 1 No Information [facility], [address], [place], [place], [address] , [place] tel: [phone] [facility] No Information 1 No Information [facility], [address], [place], [place], [address] , [place] tel: [phone] [facility] No Information 1 No Information [facility], [address], [place], [place], [address] , [place] tel: [phone] [facility] No Information 1 No Information OFFICE/OUTPA TIENT VISIT, EST [facility], [address], [place], [place], [address] , [place] tel: [phone] [facility] hypertension (chief complaint) Benign essential hypertension Contact dermatitis and other eczema, unspecified cause 1 No Information [facility], [address], [place], [place], [address] , [place] tel: [phone] [facility] No Information 1 No Information [facility], [address], [place], [place], [address] , [place] tel: [phone] [facility] Microscopic hematuria 1 No Information OFFICE OUTPT EST 25 MIN [facility], [address], [place], [place], [address] , [place] tel: [phone] [facility] smoking cessation (chief complaint)hyp ertension (chief complaint)aci d reflux (chief complaint) Unspecified essential hypertension Microscopic hematuriaEso phageal refluxUnspec ified type schizophreni a, unspecified stateEsophag eal reflux 1 No Information OFFICE/OUTPA TIENT VISIT, EST [facility], [address], [place], [place], [address] , [place] tel: [phone] [facility] medication refill (chief complaint)hyp ertension (chief complaint) Microscopic hematuriaUns pecified essential hypertension 0 No Information Referring Provider: Michael Hidalgo, [address], [place], [address]. tel:[phone] [facility], [address], [place], [place], [address] , [place] tel: [phone] [facility] Microscopic hematuria 0 No Information OFFICE OUTPT EST 25 MIN [facility], [address], [place], [place], [address] , [place] tel: [phone] [facility] hypertension (chief complaint)lon t results (chief complaint) Unspecified essential hypertension Microscopic hematuriaNon dependent tobacco use disorderUnsp ecified type schizophreni a, unspecified stateConjunc tivitis, unspecified 0 No Information [facility], [address], [place], [place], [address] , [place] tel: [phone] [facility] Microscopic hematuria 0 No Information OFFICE OUTPT EST 25 MIN [facility], [address], [place], [place], [address] , [place] tel: [phone] [facility] cough (chief complaint)smo sergei cessation rx (chief complaint) Nondependent tobacco use disorderUnsp ecified essential hypertension Unspecified type schizophreni a, unspecified stateAllergi c rhinitis, cause unspecified 0 No Information [facility], [address], [place], [place], [address] , [place] tel: [phone] [facility] No Information 0 No Information OFFICE OUTPT EST 25 MIN [facility], [address], [place], [place], [address] , [place] tel: [phone] [facility] hypertension (chief complaint)smo sergei cessation (chief complaint)col d symptoms (chief complaint) Unspecified essential hypertension Acute upper respiratory infections of unspecified siteUnspecif ied type schizophreni a, unspecified stateNondepe ndent tobacco use disorderDerm atophytosis of foot 0 No Information OFFICE/OUTPA TIENT VISIT, EST [facility], [address], [place], [place], [address] , [place] tel: [phone] [facility] flu shot (chief complaint)res ults (chief complaint) Need for prophylactic vaccination and inoculation, influenza 9 No Information OFFICE OUTPT EST 25 MIN [facility], [address], [place], [place], [address] , [place] tel: [phone] [facility] followup (chief complaint) Acute upper respiratory infections of unspecified siteUnspecif ied essential hypertension Acute upper respiratory infections of unspecified siteUnspecif ied type schizophreni a, unspecified stateAneurys m of heart (wall)Aneury sm of heart (wall)Seborr heic dermatitis 9 No Information [facility], [address], [place], [place], [address] , [place] tel: [phone] [facility] No Information 9 No Information [facility], [address], [place], [place], [address] , [place] tel: [phone] [facility] lab test (chief complaint) Laboratory examination 9 No Information OFFICE/OUTPA TIENT VISIT, EST [facility], [address], [place], [place], [address] , [place] tel: [phone] [facility] FOLLOWUP (chief complaint)hyp ertension (chief complaint)dep ression (chief complaint) Unspecified essential hypertension Depressive disorder, not elsewhere classifiedOt her specified drug dependence, unspecified useDepressiv e disorder, not elsewhere classified 9 No Information [facility], [address], [place], [place], [address] , [place] tel: [phone] [facility] Immun[facility] Location No Information 9 No Information OFFICE OUTPT EST 10 MIN [facility], [address], [place], [place], [address] , [place] tel: [phone] [facility] Issue of repeat prescription s 9 No Information OFFICE O/P EST 5 MIN [facility], [address], [place], [place], [address] , [place] tel: [phone] [facility] FOLLOW-UP EXAM NOS 8 No Information OFFICE O/P EST 5 MIN [facility], [address], [place], [place], [address] , [place] tel: [phone] [facility] ISSUE OF MED CERTIF NEC 8 No Information OFFICE O/P EST 5 MIN [facility], [address], [place], [place], [address] , [place] tel: [phone] [facility] SCREENING-PU LMONARY TB 8 No Information OFFICE/OUTPA TIENT VISIT, EST [facility], [address], [place], [place], [address] , [place] tel: [phone] [facility] HYPERTENSION NOSROUTINE MEDICAL EXAM Nov-0 6-200 8 No Information OFFICE/OUTPA TIENT VISIT, EST [facility], [address], [place], [place], [address] , [place] tel: [phone] [facility] HYPERTENSION NOSACUTE PHARYNGITIS Oct-2 7-200 8 No Information OFFICE OUTPT EST 10 MIN [facility], [address], [place], [place], [address] , [place] tel: [phone] [facility] COUGH Sep-2 2-200 8 No Information OFFICE CONSULT, 15 MIN, 3 GROVER COMPS: PROB FOCUS HX; PROB FOCUS EXAM; STRTFWD [facility], [address], [place], [place], [address] , [place] tel: [phone] [facility] [place] COUNSELING NOS Sep-1 6-200 8 No Information OFFICE/OUTPA TIENT VISIT, EST [facility], [address], [place], [place], [address] , [place] tel: [phone] [facility] ABDMNAL PAIN UNSPCF SITEABNORM ELECTROCARDI OGRAMHEADACH E Sep-1 5-200 8 No Information OFFICE/OUTPA TIENT VISIT, EST [facility], [address], [place], [place], [address] , [place] tel: [phone] [facility] ACUTE PHARYNGITIS Sep-1 1-200 8 No Information [facility], [address], [place], [place], [address] , [place] tel: [phone] [facility] [place] DENTAL EXAMINATION Sep-0 9-200 8 No Information OFFICE/OUTPA TIENT VISIT, EST [facility], [address], [place], [place], [address] , [place] tel: [phone] [facility] VITAMIN D DEFICIENCY NOSHYPERTENS ION NOS Sep-0 8-200 8 No Information OFFICE OUTPT EST 10 MIN [facility], [address], [place], [place], [address] , [place] tel: [phone] [facility] ISSUE OF MED CERTIF NEC Ebene[place]-2 3-200 8 No Information [facility], [address], [place], [place], [address] , [place] tel: [phone] [facility] DENTAL EXAMINATION 8 No Information OFFICE/OUTPA TIENT VISIT, EST [facility], [address], [place], [place], [address] , [place] tel: [phone] [facility] HYPERTENSION NOSNEED PRPHYL VC VRL HEPAT 8 No Information HOME VST EST PT LOW TO MOD SEVERITY [facility], [address], [place], [place], [address] , [place] tel: [phone] [facility] OTHER SPECFD COUNSELING 8 No Information [facility], [address], [place], [place], [address] , [place] tel: [phone] [facility] LABORATORY EXAMINATION 8 No Information HOME VST EST PT LOW TO MOD SEVERITY [facility], [address], [place], [place], [address] , [place] tel: [phone] [facility] NUTRITION DEFICIENCY NOSOTHER SPECFD COUNSELING 8 No Information [facility], [address], [place], [place], [address] , [place] tel: [phone] [facility] LABORATORY EXAMINATION 8 No Information OFFICE/OUTPA TIENT VISIT, EST [facility], [address], [place], [place], [address] , [place] tel: [phone] [facility] DRUG DEPEND NEC-UNSPECHY PERTENSION NOSDERMATOPH YTOSIS OF FOOT 8 No Information HOME VST NEW PT HI SEVERITY [facility], [address], [place], [place], [address] , [place] tel: [phone] [facility] NUTRITION DEFICIENCY NOSOTHER SPECFD COUNSELING 8 No Information OFFICE/OUTPA TIENT VISIT, EST [facility], [address], [place], [place], [address] , [place] tel: [phone] [facility] VITAMIN D DEFICIENCY NOSSCHIZOPHR ENIA NOS-UNSPECHY PERTENSION NOS 8 No Information [facility], [address], [place], [place], [address] , [place] tel: [phone] [facility] [place] DENTAL EXAMINATION 8 No Information OFFICE CONSULT, 15 MIN, 3 GROVER COMPS: PROB FOCUS HX; PROB FOCUS EXAM; STRTFWD [facility], [address], [place], [place], [address] , [place] tel: [phone] [facility] [place] COUNSELING NOS 8 No Information OFFICE OUTPT EST 10 MIN [facility], [address], [place], [place], [address] , [place] tel: [phone] [facility] ISSUE REPEAT PRESCRIPT 8 No Information OFFICE/OUTPA TIENT VISIT, EST [facility], [address], [place], [place], [address] , [place] tel: [phone] [facility] ALLERGIC RHINITIS NOSTOBACCO USE DISORDERHYPE RTENSION NOSDERMATOPH YTOSIS OF FOOT 7 No Information OFFICE CONSULT, 15 MIN, 3 GROVER COMPS: PROB FOCUS HX; PROB FOCUS EXAM; STRTFWD [facility], [address], [place], [place], [address] , [place] tel: [phone] [facility] COUNSELING NOS 7 No Information [facility], [address], [place], [place], [address] , [place] tel: [phone] [facility] DENTAL EXAMINATION 7 No Information OFFICE OUTPT EST 10 MIN [facility], [address], [place], [place], [address] , [place] tel: [phone] [facility] ACUTE URI NOSALLERGIC RHINITIS NOS 7 No Information OFFICE OUTPT EST 10 MIN [facility], [address], [place], [place], [address] , [place] tel: [phone] [facility] ACUTE URI NOS 7 No Information [facility], [address], [place], [place], [address] , [place] tel: [phone] [facility] [place] DENTAL EXAMINATION 7 No Information OFFICE CONSULT, 15 MIN, 3 GROVER COMPS: PROB FOCUS HX; PROB FOCUS EXAM; STRTFWD [facility], [address], [place], [place], [address] , [place] tel: [phone] [facility] COUNSELING NOS 7 No Information OFFICE/OUTPA TIENT VISIT, EST [facility], [address], [place], [place], [address] , [place] tel: [phone] [facility] [place] DERMATITIS NOSDERMATOPH YTOSIS OF FOOTHYPERTEN ALEXI NOS 7 No Information OFFICE CONSULT, 15 MIN, 3 GROVER COMPS: PROB FOCUS HX; PROB FOCUS EXAM; STRTFWD [facility], [address], [place], [place], [address] , [place] tel: [phone] [facility] COUNSELING NOS 7 No Information [facility], [address], [place], [address] , [place] tel: [phone] [facility] [place] DENTAL EXAMINATION 7 No Information OFFICE/OUTPA TIENT VISIT, EST [facility], [address], [place], [place], [address] , [place] tel: [phone] [facility] HYPERTENSION NOSCHEST PAIN NECANEURYSM OF HEART NECDEPRESSIV E DISORDER NEC 0 7 No Information OFFICE/OUTPA TIENT VISIT, EST [facility], [address], [place], [place], [address] , [place] tel: [phone] [facility] ABDMNAL PAIN UNSPCF SITEHYPERTEN ALEXI NOSNONSPECIF SKIN ERUPT NEC Nov- 7 No Information OFFICE OUTPT EST 10 MIN [facility], [address], [place], [place], [address] , [place] tel: [phone] [facility] ISS[facility] REPEAT PRESCRIPTABD MNAL PAIN UNSPCF SITE 6 No Information OFFICE CONSULT, 15 MIN, 3 GROVER COMPS: PROB FOCUS HX; PROB FOCUS EXAM; STRTFWD [facility], [address], [place], [place], [address] , [place] tel: [phone] [facility] COUNSELING NOS 6 No Information OFFICE/OUTPA TIENT VISIT, EST [facility], [address], [place], [place], [address] , [place] tel: [phone] [facility] DE[facility] DIS[facility] NECABDMNAL PAIN UNSPCF SITE 6 No Information OFFICE OUTPT EST 10 MIN [facility], [address], [place], [place], [address] , [place] tel: [phone] [facility] ISSUE REPEAT PRESCRIPTABD MNAL PAIN UNSPCF SITE 6 No Information OFFICE OUTPT EST 10 MIN [facility], [address], [place], [place], [address] , [place] tel: [phone] [facility] ISS[facility] REPEAT PRESCRIPT 6 No Information HOME VST EST PT LOW TO MOD SEVERITY [facility], [address], [place], [place], [address] , [place] tel: [phone] [facility] SCHIZOPHRENI FORM DIS NOS 6 No Information HOME VST EST PT LOW TO MOD SEVERITY [facility], [address], [place], [place], [address] , [place] tel: [phone] [facility] SCHIZOPHRENI FORM DIS NOS 6 No Information HOME VST EST PT LOW TO MOD SEVERITY [facility], [address], [place], [place], [address] , [place] tel: [phone] [facility] SCHIZOPHRENI A NOS-UNSPEC 6 No Information OFFICE/OUTPA TIENT VISIT, EST [facility], [address], [place], [place], [address] , [place] tel:[phone] [facility] DEPRESSIVE DISORDER NECHELICOBAC TER PYLORICHEST PAIN NEC 6 No Information OFFICE OUTPT EST 25 MIN [facility], [address], [place], [place], [address] , [place] tel: [phone] [facility] OPEN WOUND ARM MULT/NOS 6 No Information OFFICE OUTPT EST 10 MIN [facility], [address], [place], [place], [address] , [place] tel: [phone] [facility] VERNAL CONJUNCTIVIT IS 6 No Information OFFICE/OUTPA TIENT VISIT, EST [facility], [address], [place], [place], [address] , [place] tel: [phone] [facility] INSECT BITE FOREARMDEPRE SSIVE DISORDER NECABDMNAL PAIN UNSPCF SITE 6 No Information [facility], [address], [place], [place], [address] , [place] tel: [phone] [facility] DENTAL EXAMINATION 6 No Information OFFICE CONSULT, 15 MIN, 3 GROVER COMPS: PROB FOCUS HX; PROB FOCUS EXAM; STRTFWD [facility], [address], [place], [place], [address] , [place] tel: [phone] [facility] COUNSELING NOS 6 No Information HOME VST EST PT LOW TO MOD SEVERITY [facility], [address], [place], [place], [address] , [place] tel: [phone] [facility] HEADACHE 6 No Information OFFICE OUTPT NEW 30 MIN [facility], [address], [place], [place], [address] , [place] tel: [phone] [facility] ACUTE URI NOSJOINT PAIN-SHLDER 5-200 6 No Information Family History Family Member Type Diagnosis Age At Onset Mother Problem (finding) Maternal histo ry of diabetes mellitus Maternal grandmother Problem (finding) stroke Immunizations Vaccine Date Status Comments Flu (split) (3 yrs or older) administered Note: [facility]--06656-722-84 ; Source: New Immunization Record Flu (split) (3 yrs or older) administered Note: [facility] 33785-627-74 VIS DATE 03/26/2010 ; Source: New Immunization Record Twinrix administered Note: GIVEN 1ML IM [facility] 15640-325-31 VIS DATE 09/30/2008 ; Source: New Immunization Record Flu (split) (3 yrs or older) administered Note: [facility] 73526-157-82 ; Source: New Immunization Record INFLUENZA VIRUS [...] PSA. Due on due Referral Referred To: [address], [phone] Ordered: Referral: [facility]. Dermatology. Follow-up and Treat. Appointment date/timeframe: 08/23/2009 ordered Future Order: Lab Order POC GLUC OSE ([id number]), Appointment on: , Sent on: Sent Future Order: Lab Order BASIC ME TABOLIC PANEL W/EGFR ([id number]), Appointment on: , Sent on: Sent History [...]
--- NOTE | ~2025-06-30 | MR_ITS ---
EXAM/PROCEDURE: MR shoulder RT wo/w con HISTORY: M25.511 - Pain in right shoulder COMPARISON: August 2013 x-rays TECHNIQUE: Multiplanar pre and postcontrast enhanced right shoulder MRI performed. FINDINGS: Several sequences are degraded by extensive motion artifact. No fracture subluxation or dislocation. 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 No definite labral tear on this nonarthrographic series. Trace amount of horizontally oriented fluid signal in the supraspinatus tendon. No full-thickness tear or retraction. The infraspinatus and subscapularis and teres minor appear intact. Long head of the biceps tendon is intact within the bicipital groove. Superior labral attachment appears intact. Spinoglenoid recess and suprascapular notch regions appear normal. On postcontrast series no abnormal enhancing lesions identified. Synovial enhancement about the AC joint is somewhat prominent as can be seen on images 12 through 15 of series 11. IMPRESSION: 1. Small longitudinal split tear in the supraspinatus tendon. 2. Mild to moderate degenerative changes about the glenohumeral joint and AC joint also noted with synovial enhancement of the AC joint particularly prominent which could be associated with active inflammation in this area. Reviewed, dictated and finalized at location A. E SPECIALIST IMPRESSION: 1. Small longitudinal split tear in the supraspinatus tendon. 2. Mild to moderate degenerative changes about the glenohumeral joint and AC diana int also noted with synovial enhancement of the AC joint particularly prominent which could be associated with active inflammation in this area.
--- OUTSIDE RECORDS SUMMARY | 2025-06-30 19:19 | XMS_ITS | Clinical Summary ---
Author Organization [facility] al Address [address] [place] [address] Care Team Providers Care Retail Sales Assistant Name Role Phone John Diaz MD Primary [...] nausea or vomiting. 15 tablet 4 Active erythromycin (ILOTYCIN) ophthalmic ointment Place a 1/2 inch ribbon of ointment into the lower eyelid every 4 hours. 3.5 g 5 Active Active Problems Problem Noted Date Diagnosed [...] making you feel afraid or unsafe? 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 Gender Identity Not on file Sexual Orientation Not on file Last Filed Vital Signs Vital Sign Reading Time Taken Comments Blood Pressure 137/86 03/09/2025 7:36 AM CDT Pulse 89 03/09/2025 7:36 AM CDT Temperature 36.6 C (97.8 F) 03/09/2025 7:36 AM CDT Respiratory Rate 18 03/09/2025 7:36 AM CDT Oxygen Saturation 97% 03/09/2025 7:36 AM CDT Inhaled Oxygen Concentration - - Weight 82.6 kg (182 lb) 03/09/2025 7:36 AM CDT Height 175.3 cm (5' 9) 03/09/2025 7:36 AM CDT Body Mass Index 26.88 03/09/2025 7:36 AM CDT Plan of Treatment Health Maintenance Due Date Last Done Comments Colon Cancer Screening-Colonoscopy 1969 Depression Screening 1969 Hepatitis C Screening 1969 Prostate Cancer Screening-PSA 1969 Regular Well Visit/Exam 18-64 1987 Pneumococcal vaccine <65 (2 of 2 - PCV) 07/26/2017 07/26/2016 Zoster Vaccine (1 of 2) 2019 DTaP/Tdap/Td Vaccine (2 - Td or Tdap) 04/01/2020 04/01/2010, 04/24/2005 Influenza Vaccine (#1) 2025 8, 07/26/2016, 05/12/2014, Additional history exists Hepatitis B Screening Completed 04/24/2005 Insurance [employer] CHOICE [place] [facility] [place]UAL COMPLETE [id number] [place] [employer] [facility] DUAL COMPLETE [id number] Care Teams Retail Sales Assistant Relationship Specialty Start Date End Date John Diaz MD [address] [place] [address] PCP - General 08/02/17
--- OUTSIDE RECORDS SUMMARY | 2025-06-30 19:20 | XMS_ITS | Clinical Summary ---
Author Organization [facility] Address [address] [place] [address] Care Team Providers Care Oil Tanker Captain Name Role Phone John Diaz MD Primary Care Provider [phone] Source Comments [facility],non-owned Affiliates and Associated Physician Practices is amultiple site organization consisting of ambulatory clinics and hospital sitesin [place], [place], [place] and [place]. This disclosure is being madepursuant to the Care Everywhere program and may not contain all information available regarding this patient. Last updated 18.[employer] [place] [facility] Allergies No known active allergies Medications * Be aware that medications may not be up to date on this document. Alwaysverify current medications with the patient. acetaminophen (Tylenol) 500 MG tablet Take 1 (one) tablet by mouth every 4 hours as needed for Fever or Pain Maximum allowable Acetaminophen amount = 4 Grams (4000 mg) / 24 hours. 30 tablet 10/18/2024 3:28 PM MOLASSES PREPARER 5 Active ibuprofen (Motrin) 600 MG tablet Take 1 (one) tablet by mouth every 6 hours as needed for Pain 30 tablet 10/18/2024 3:28 PM MOLASSES PREPARER 5 Active Encounters Date Type Department Care Team Description 04/17/2025 11:34 AM CDT - 04/17/2025 3:11 PM CDT Emergency [facility] EMERGENCY DEPARTMENT [address] [place] [id number] Domingo Ashton MD Biceps tendinitis of right upper extremity (Primary Dx); Right shoulder pain, unspecified chronicity Discharge Disposition: Home or Self Care 04/17/2025 Travel from Last 3 Months Immunizations Immunization Administration Dates Next Due HEP A VACCINE, [...] at Not on file Legal Sex Male 6:07 AM MOLASSES PREPARER Gender Identity Not on file Sexual Orientation Not on file Last Filed Vital Signs Vital Sign Reading Time Taken Comments Blood Pressure 168/113 04/17/2025 11:40 AM CDT Pulse 73 04/17/2025 11:40 AM CDT Temperature 36.4 C (97.6 F) 04/17/2025 11:40 AM CDT Respiratory Rate 18 04/17/2025 11:40 AM CDT Oxygen Saturation 100% 04/17/2025 11:40 AM CDT Inhaled Oxygen Concentration - - Weight 81.6 kg (180 lb) 04/17/2025 3:57 AM CDT Height 177.8 cm (5' 10) 04/17/2025 3:57 AM CDT Body Mass Index 25.83 04/17/2025 3:57 AM CDT Plan of Treatment Health Maintenance [...] SCREENING 08/17/2024 MEDICARE AWV CALENDAR YEAR 2024 COVID-19 VACCINE ( season) 2025 07/06/2024, 01/11/2021, 12/21/2020 INFLUENZA VACCINE (#1) 2025 , 08/24/2017, 07/26/2016, Additional history exists HEPATITIS C SCREENING Completed 09/13/2017 HIV SCREENING Completed 09/13/2017 HIB VACCINE Aged Out No longer eligi [...] Procedure Name Priority Date/Time Associated Diagnosis Comments XR SHOULDER RIGHT 2VW OR MORE STAT 04/17/2025 7:48 AM CDT Right shoulder pain, unspecified chronicity XR HUMERUS RIGHT 2VW OR MORE STAT 04/17/2025 7:48 AM CDT Right shoulder pain, unspecified chronicity HEPATITIS C AB SCREEN RFLX NAAT QUANT Routine 09/13/2017 11:38 PM MOLASSES PREPARER HIV-1 HIV-2 ANTIGEN/ANTIBODY Routine 09/13/2017 11:38 PM MOLASSES PREPARER from Last 3 Months or Most Recently Relevant to Health Maintenance Results * XR SHOULDER 2+ VW RIGHT (04/17/2025 7:48 AM CDT) Anatomical Region Laterality Modality Upper Extremity Digital Radiogra phy 04/17/2025 7:55 AM CDT Impressions 04/17/2025 8:04 PM CDT IMPRESSION: No acute fracture or dislocation identified in the right shoulder or humerus. Report dictated by Travis Ha MD, (residential coordinator). > Dictated by Beautician Apprentice I, Clark Tovar have personally reviewed and interpreted this examination/study. > Interpreting Provider: Clark Tovar on 04/17/2025 8:04 PM Narrative 04/17/2025 8:04 PM CDT PROCEDURE: XR SHOULDER RIGHT 2VW OR MORE, XR HUMERUS RIGHT 2VW OR MORE, DATE/TIME OF EXAM: 04/17/2025 7:48 AM, LOCATION [facility] INDICATION: M25.511: Right shoulder pain, unspecified chronicity ADDITIONAL CLINICAL INFORMATION: Ordering Provider Reason For Exam: shoulder pain Technologist Note: Additional: COMPARISON: None. FINDINGS: Right shoulder and humerus: The osseous structures are intact without acute fracture. Periosteal reaction along the proximal humerus, likely sequela of prior trauma. The glenohumeral and acromioclavicular joints are in anatomic alignment. Procedure Note Clark Tovar MD - 04/17/2025 PROCEDURE: XR SHOULDER RIGHT 2VW OR MORE, XR HUMERUS RIGHT 2VW OR MORE, DATE/TIME OF EXAM: 04/17/2025 7:48 AM, LOCATION [facility] INDICATION: M25.511: Right shoulder pain, unspecified chronicity ADDITIONAL CLINICAL INFORMATION: Ordering Provider Reason For Exam: shoulder pain Technologist Note: Additional: COMPARISON: None. FINDINGS: Right shoulder and humerus: The osseous structures are intact without acute fracture. Periosteal reaction along the proximal humerus, likely sequela of prior trauma. The glenohumeral and acromioclavicular joints are in anatomic alignment. IMPRESSION: No acute fracture or dislocation identified in the right shoulder or humerus. Report dictated by Travis Ha MD, (residential coordinator). > Dictated by Beautician Apprentice I, Clark Tovar have personally reviewed and interpreted this examination/study. > Interpreting Provider: Clark Tovar on 04/17/2025 8:04 PM us Anselmo Birch MD DIAGNOSTIC IMAGING ORDERABLE S Final Result * XR HUMERUS 2+ VW RIGHT (04/17/2025 7:48 AM CDT) Anatomical Region Laterality Modality Upper Extremity Digital Radiogra phy 04/17/2025 7:55 AM CDT Impressions 04/17/2025 8:04 PM CDT IMPRESSION: No acute fracture or dislocation identified in the right shoulder or humerus. Report dictated by Travis Ha MD, (residential coordinator). > Dictated by Beautician Apprentice IClark have personally reviewed and interpreted this examination/study. > Interpreting Provider: Clark Tovar on 04/17/2025 8:04 PM Narrative 04/17/2025 8:04 PM CDT PROCEDURE: XR SHOULDER RIGHT 2VW OR MORE, XR HUMERUS RIGHT 2VW OR MORE, DATE/TIME OF EXAM: 04/17/2025 7:48 AM, LOCATION [facility] INDICATION: M25.511: Right shoulder pain, unspecified chronicity ADDITIONAL CLINICAL INFORMATION: Ordering Provider Reason For Exam: shoulder pain Technologist Note: Additional: COMPARISON: None. FINDINGS: Right shoulder and humerus: The osseous structures are intact without acute fracture. Periosteal reaction along the proximal humerus, likely sequela of prior trauma. The glenohumeral and acromioclavicular joints are in anatomic alignment. Procedure Note Clark Tovar MD - 04/17/2025 PROCEDURE: XR SHOULDER RIGHT 2VW OR MORE, XR HUMERUS RIGHT 2VW OR MORE, DATE/TIME OF EXAM: 04/17/2025 7:48 AM, LOCATION [facility] INDICATION: M25.511: Right shoulder pain, unspecified chronicity ADDITIONAL CLINICAL INFORMATION: Ordering Provider Reason For Exam: shoulder pain Technologist Note: Additional: COMPARISON: None. FINDINGS: Right shoulder and humerus: The osseous structures are intact without acute fracture. Periosteal reaction along the proximal humerus, likely sequela of prior trauma. The glenohumeral and acromioclavicular joints are in anatomic alignment. IMPRESSION: No acute fracture or dislocation identified in the right shoulder or humerus. Report dictated by Travis Ha MD, (residential coordinator). > Dictated by Beautician Apprentice Clark Becker have personally reviewed and interpreted this examination/study. > Interpreting Provider: Clark Tovar on 04/17/2025 8:04 PM Anselmo Birch MD DIAGNOSTIC IMAGING ORDERABLE S Final Result * HIV-1 HIV-2 ANTIGEN/ANTIBODY (09/13/2017 11:38 PM MOLASSES PREPARER) HIV Antigen/Antibod y 1 & 2 Non-reacti ve Non-react gaby [facility] Comment: Neither HIV-1 p24 Antigen nor HIV-1/HIV-2 Antibodies are detected. Blood specimen (specimen) BLOOD SPECIMEN / Unknown 09/13/2017 11:38 PM MOLASSES PREPARER 09/13/2017 11:38 PM MOLASSES PREPARER Wesley Rodriges MD LAB - HEMATOLOGY ORDERABLES F inal Result [address] [phone] * HEPATITIS C AB SCREEN RFLX PCR QUANT (09/13/2017 11:38 PM MOLASSES PREPARER) Pathologist [facility] Hepatitis C Antibody Non-react gaby Non-reac tive [facility] Comment: Hepatitis C Antibody screen indicates no serologic evidence of past or current infection with Hepatitis C Virus. Patients with unexplained liver disease who are immunocompromised or suspected of having acute Hepatitis C infection may benefit from Nucleic Acid Test (YOON) for Hepatitis C Viral RNA to confirm Hepatitis C status. BLOOD SPECIMEN / Unknown 09/13/2017 11:38 PM MOLASSES PREPARER 09/13/2017 11:38 PM MOLASSES PREPARER Result [facility] Wesley Rodriges MD LAB - CHEMISTRY ORDERABLES Fi nal Result Performing Organization Address [facility] Co de Phone Number [address] [phone] from Last 3 Months or Most Recently Relevant to Health Maintenance Insurance [facility] MANAGED MEDICARE ADV MEDICAID [facility] SELF PAY NO INSURANCE Member Subscriber Plan / Payer (Ef fective for All Dates) Name:Nati Ken Member ID:Not on file Relation to Subscriber:Not on file Name:NATI KEN Subscriber ID:Not on file (Home) Address: [address] [place] [address] Payer ID:Not on file Group ID:Not on file Type:Self Pay Address: [place], [place] Care Teams Oil Tanker Captain Relationship Specialty Start Date End Date John Diaz MD [address] [place] [id number] PCP - General Internal Medicine 04/17/25
== END 2025-06-30 14:52 | disposition home or self-care (01) ==
PROVIDERS: PCP Emergency Medicine; Visit Provider Emergency Medicine
DX: S46.811A Strain of other muscles, fascia and tendons at shoulder and upper arm level, right arm, initial encounter (principal); X58.XXXA Exposure to other specified factors, initial encounter; M19.011 Primary osteoarthritis, right shoulder; M67.211 Synovial hypertrophy, not elsewhere classified, right shoulder
CPT/HCPCS: 73223; A9577